=== PATIENT | male | born 1945 | race Caucasian/White ===

== ENCOUNTER 2016-12-17 10:48 | Observation (INO) | payer OTHER ==
[~2016-12-17] VITALS: Ht 175.3 cm; Wt 70.6 kg
[~2016-12-17 10:48] MED LIST: ADVAIR DISKU1 INH; ALBUTEROL2.5 MG/3 M IN; ASPIRIN ADULT L81 MG PO; IPRATROPIUM BROMIDE/ IN; KLOR-CON 1010 MEQ PO; LASIX20 MG PO; LOPRESSOR25 MG PO; NICOTINE T7 MG/24 HR TOP; O2; O2 IN; OXYCONTIN CR10 MG PO; PRINIVIL5 MG PO
--- NOTE | 2016-12-17 12:19 | DIAGNOSTIC IMAGING REPORT ---
PROCEDURE: XR CHEST 1 VIEW INDICATION: SHORTNESS OF BREATH TECHNIQUE: Portable AP view 11:31 a.m. COMPARISON: Chest 07/30/1969 07/02/[address] 07/28/2016 FINDINGS: Allowing for suboptimal inspiration, lungs are clear. Mild cardiomegaly. Mediastinum is normal. Thorax is normal. IMPRESSION: 1. Cardiomegaly. 2. Otherwise negative chest.
--- NOTE | 2016-12-17 15:36 | DIAGNOSTIC IMAGING REPORT ---
PROCEDURE: US VENOUS - LEFT EXT INDICATION: SWELLING TECHNIQUE: Duplex sonography of the deep venous system in the lower extremity was performed. Compression and augmentation techniques were used. COMPARISON: None. FINDINGS: Normal compression of the greater saphenous, common femoral, superficial femoral, popliteal, peroneal, and posterior tibial veins. Occlusive thrombus of the gastrocnemius vein. IMPRESSION: 1. Occlusive thrombus of the left gastrocnemius vein.
--- NOTE | 2016-12-17 16:32 | DIAGNOSTIC IMAGING REPORT ---
PROCEDURE: CTA THORAX WITH CONTRAST INDICATION: SHORTNESS OF BREATH TECHNIQUE: 76 ml of Isovue 370 was injected intravenously and axial images were obtained of the entire thorax with 3D sagittal and coronal MIP reconstructions. COMPARISON: Chest x-ray 12/17/2016 and CTA 07/02/2016. FINDINGS: No evidence of pulmonary emboli. Slight progression of left basilar atelectasis. No adenopathy. Moderate atherosclerosis of the aorta without dissection or aneurysm. Coronary atherosclerosis. Mild cardiomegaly with new small right and tiny left pleural effusions. Pericardial calcification. Moderate degenerative changes of the thoracic and lumbar spine with several stable old compression fractures of the lower thoracic spine and upper lumbar spine. IMPRESSION: 1. No evidence of pulmonary emboli 2. Cardiomegaly with pericardial calcification (suggestive of prior inflammatory process) with new bilateral pleural effusion suggestive of CHF 3. Slight progression of left basilar atelectasis 4. Results discussed with Dr. Moy
--- NOTE | 2016-12-17 20:25 | ED CLINICAL REPORT ---
Clinical Report - Physicians/Mid Levels [facility] [address] [place] [address] 12/17/2016 10:50 Patient: STIVEN JUAN Time Seen: 10:56; initial patient contact. Arrived- By private vehicle. Historian- patient. HISTORY OF PRESENT ILLNESS Chief Complaint: HISTORY OF CHRONIC OBSTRUCTIVE PULMONARY DISEASE and CONGESTIVE HEART FAILURE. This started about 4 days ago and is still present. The dyspnea is described as moderate. The dyspnea is worsened by walking, exertion and cough. No improvement of dyspnea with rest or oxygen. The patient has had sputum production, a cough, wheezing, dyspnea on exertion and orthopnea. No fever, sweating episodes, chills or chest pain or discomfort. No calf pain, anxiety, dizziness or palpitations. The patient has had moderate left foot swelling. Similar symptoms previously: Several times. Recent medical care: Not recently seen/assessed. REVIEW OF SYSTEMS No nausea, vomiting or headache. All systems otherwise negative, except as recorded above. PAST HISTORY Hypoxia. Respiratory Failure. Acidosis. Contusion. Lung Disease. Pneumonia. Congestive Heart Failure. COPD - Chronic Obstructive Pulmonary Disease. Hypertension. Muscle Tear Cellulitis Hematuria Ureterolithiasis ADDITIONAL SURGERIES: Knee Surgery. Neck Surgery. SOCIAL HISTORY Current every day smoker. Occasional alcohol use. No drug use. ADDITIONAL NOTES The nursing notes have been reviewed. PHYSICAL EXAM Vital Signs: 12/17/2016 10:53 BP: 184/106. HR: 117. RR: 26. O2 saturation: 70%. Temp: 98 F. Have been reviewed. Hypertensive. Tachycardic. Tachypneic. Temperature normal. Oxygen saturation low. Appearance: Alert. No acute distress. Eyes: Eyes normal inspection. ENT: Pharynx normal. Neck: Normal inspection. No jugular venous distention. CVS: Tachycardia. Heart sounds normal. Rhythm normal. Respiratory: Mild respiratory distress with accessory muscle use. Mildly prolonged expirations. Mild rales present in the bases bilaterally. Abdomen: Soft and nontender. No organomegaly. Skin: Skin warm and dry. Normal skin color. No rash. Extremities: Moderate pitting edema of the left lower extremity involving the lower leg. No calf tenderness. Neuro: Oriented X 3. No motor deficit. LABS, X-RAYS, AND EKG EKG: EKG time: (1107). Narrow-complex tachycardia (ventricular rate 115). Sinus tachycardia. Normal P waves. Normal LUIS A. Normal QRS complex. Right axis deviation. Normal ST and T waves, QT and QTc. EKG unchanged when compared with prior EKG. The study has been interpreted contemporaneously by me. The study has been independently viewed by me. The EKG appears to be a good tracing. Interpretation time: 1107. Chest X-ray: Mild cardiomegaly. Normal lung markings present. No infiltrate. No vascular congestion, CHF or pulmonary edema. Views: AP. The X-rays were independently viewed by me and interpreted contemporaneously by me. Prior films were not available for comparison. Chest CT: (1. No evidence of pulmonary emboli 2. Cardiomegaly with pericardial calcification (suggestive of prior inflammatory process) with new bilateral pleural effusion suggestive of CHF 3. Slight progression of left basilar atelectasis). Chest CT performed with contrast. A comparison with prior studies reveals that the findings have worsened. The study was interpreted by the radiologist and discussed with the radiologist. Lower Extremity Sonography: Occlusive thrombus of the left gastrocnemius vein. The exam was performed by a public health sanitarian technician. The study was interpreted by the radiologist and discussed with the radiologist. Prior studies were not available for comparison. Laboratory Tests: UA-Culture if indicated: (ANDREIA: 12/17/2016 16:10) ( MsgRcvd 12/17/2016 16:37) Final results Test Result Flag Units (Reference) URINE COLOR BROWN URINE APPEARANCE CLEAR URINE GLUCOSE NEGATIVE (NEGATIVE) URINE BILIRUBIN NEGATIVE (NEGATIVE) URINE KETONE NEGATIVE (NEGATIVE) URINE SPECIFIC GRAVITY >= 1.030 (1.010-1.030) URINE PH 5.5 (5.0-8.0) URINE PROTEIN TRACE (NEGATIVE) URINE UROBILINOGEN 0.2 EU/dL (0.2-1.0) URINE NITRITE NEGATIVE (NEGATIVE) URINE BLOOD NEGATIVE (NEGATIVE) URINE LEUK ESTERASE NEGATIVE (NEGATIVE) URINE RBC NONE SEEN rbc/hpf (0-1) URINE WBC 0-1 wbc/hpf (0-1) URINE EPITHELIAL CELLS 1-3 EPI/hpf (0-5) HYALINE CASTS 3-5/LPF URINE BACTERIA TRACE (<1+) (NONE SEEN) URINE COMMENT CULT NOT INDICATED URINE CULTURES ARE SET-UP BASED ON THE FOLLOWING CRITERIA:POSITIVE NITRITEPOSITIVE LEUKOCYTE ESTERASEGREATER THAN 10 WHITE BLOOD CELLSMODERATE (2+) OR GREATER BACTERIA CBC w Diff: (ANDREIA: 12/17/2016 11:00) ( [facility] 12/17[place] 11:33) Final results Test Result Flag Units (Reference) WHITE BLOOD COUNT 8.9 K/uL (4.5-11.5) RED BLOOD COUNT 4.95 M/uL (4.50-5.90) HEMOGLOBIN 13.3 L gm/dL (13.5-17.5) HEMATOCRIT 42.1 % (41.0-53.0) MEAN CELL VOLUME 85 fL (80-100) MEAN CORPUSCULAR HGB 27 pg (26-34) MEAN CORPUSCULAR HGB CONC 32 g/dL (31-37) RED CELL DISTRIBUTION WIDTH 17.4 H % (11.6-14.8) PLATELET COUNT 220 K/uL (150-400) NEUTROPHIL % 60.0 % (50-75) LYMPH % 28.6 % (25-40) MONO % 8.9 % (3-14) EOSINOPHIL % 2.2 % (0-4) BASOPHIL % 0.3 % (0-2) [id number]: (ANDREIA: 12/17/2016 11:00) ( [facility] 12/17/2016 11:40) Final results Test Result Flag Units (Reference) D-DIMER QUANTITATIVE 0.75 H ug/mLFEU (0.27-0.52) The primary value of this quantitative assay relates toits negative predictive value (i.e. exclusion) of pulmonaryembolism/deep vein thrombosis/DIC.Elevated levels of d-dimer may also occur with:, age, cancer, inflammation, liver disease,post-op, infection, hematoma, coronary disease, peripheralarteriopathy, bleeding disorders and thrombolytic treatment.Results should be correlated with other clinical andradiological data.Testing Methodology: Latex Immunoassay BNP: (ANDREIA: 12/17/2016 11:00) ( [facility] 12/17/2016 11:53) Final results Test Result Flag Units (Reference) B-TYPE NATRIURETIC PEPTIDE 411 H pg/ml (5-100) CHEM 13 PANEL: (ANDREIA: 12/17/2016 11:00) ( [facility] 12/17/2016 12:07) Final results Test Result Flag Units (Reference) GLUCOSE 115 H mg/dL (70-110) BUN 10 mg/dL (7-18) CREATININE 0.7 mg/dL (0.6-1.3) Estimated GFR >60 mL/min Estimated GFR- >60 mL/min Note: Persistent reduction over 3 months in eGFR<60 mL/min/1.73 m2 defines CKD. Patients with eGFR values>=60 mL/min/1.73 m2 may also have CKD if evidence ofpersistent proteinuria. Additional information may be foundat www.kidney.org. SODIUM 145 mmol/L (136-145) POTASSIUM 4.7 mmol/L (3.5-5.1) CHLORIDE 102 mmol/L (98-107) CARBON DIOXIDE 42 *H mmol/L (21-32) CALCIUM 9.4 mg/dL (8.5-10.1) TOTAL PROTEIN 7.3 g/dL (6.4-8.2) ALBUMIN 3.8 g/dL (3.3-5.0) BILIRUBIN, TOTAL 1.8 H mg/dL (0.0-1.0) ALKALINE PHOSPHATASE 80 U/L (46-116) AST (SGOT) 16 U/L (15-37) ALT (SGPT) 25 U/L (12-78) MAGNESIUM 2.1 mg/dL (1.8-2.4) CPK 51 U/L (24-260) TROPONIN I <0.05 ng/mL (0.00-1.5) TROPONIN REFERENCE RANGE:<0.1 NEGATIVE0.1-1.5 INDETERMINANT>1.5 POSITIVE ABG: (ANDREIA: 12/17/2016 16:56) ( [facility] 12/17/2016 17:36) Final results Test Result Flag Units (Reference) FIO2 28 % (20-101) ABG MODE OF DELIVERY NC MODIFIED JIM TEST POSITIVE? YES LITERS PER MIN. 2 L/MIN (0-20) ARTERIAL BLOOD GAS SITE RR ARTERIAL BLOOD GAS pH 7.31 L (7.35-7.45) ABG PCO2 94.7 *H mmHg (35-45) ABG PO2 65.9 mmHg (60.0-80.0) ABG BASE EXCESS 19.0 *H mmol/L (-6.0--6.0) ABG HCO3 47.7 *H mmol/L (20.0-26.0) ABG TCO2 50.6 *H mmol/L (24.0-30.0) ABG TrLmB6m 25.3 H mmHg (7.0-14.0) *NOTE: Normal rangeis based on aFIO2 of 21% ABG SAT O2 93.2 L % (95.1-100.0) ABG TOTAL HEMOGLOBIN 12.1 L g/dL (14.0-18.0) ABG O2 HEMOGLOBIN 90.0 L % (95.0-100.0) ABG CARBOXYHEMOGLOBIN 3.3 H % (0.5-1.5) ABG METHEMOGLOBIN 0.1 L % (0.4-1.5) ABG RHEMOGLOBIN 6.6 % . PROGRESS AND PROCEDURES Discussed case with hospitalist, (call returned 20:24 Dr. Sims. Will admit pt.). CLINICAL IMPRESSION Acute mild congestive heart failure. Deep venous thrombosis of the left lower extremity (Gastrocnemius V.). (Electronically signed by Marco Antonio Moy Dr. 12/17/2016 21:39)
--- NOTE | 2016-12-17 20:25 | ED ORDER SUMMARY ---
..... Patient: STIVEN JUAN OrderSheet [facility] VisitID: [id number] [place] [address] 71y, M Registration Date/Time: 12/17/2016 ORDER SHEET Weight: 68.0 kg (estimated) Allergies: No Known Drug Allergy GENERAL ORDERS: EKG - ER Stat (11:11 12/17/2016 LNations ER Tech1 per protocol) (11:12 LNations ER Tech1) Chest 1V Urgent (11:12/17/2016 Jose L Jefferson) (Ack 11:23 Kaleb) (11:40 ROBBINayne R.N.) UA-Culture if indicated Urgent (11:12/17/2016 Jose L Jefferson) (Ack 11:23 Kaleb) (16:17 SRoberts R.N.) Cardiac Panel Stat (11:12/17/2016 Jose L Jefferson) (Ack 11:23 Kaleb) (11:50 SRoberts R.N.) BNP Urgent (11:12/17/2016 Jose L Jefferson) (Ack 11:23 Shannonner) (11:50 oberts R.N.) D-Dimer Urgent (11:12/17/2016 Jose L Jefferson) (Ack 11:23 Shannonner) (11:50 SRoberts R.N.) CTA Thorax w Cont (No) (10/0.7) (Pos D dimer) Urgent (14:38 12/17/2016 Jose L Jefferson) (Ack 14:46 Kaleb) (16:37 MCampbell) US Venous Left (Pos D dimer) Urgent (14:42 12/17/2016 Jose L Jefferson) (Ack 14:46 Kaleb) (14:52 YUSEFoejoseph) ABG (G) Urgent (16:56 12/17/2016 Jose L Jefferson) (Ack 17:00 YUSEFoejoseph) (18:51 YUSEFoerner) MEDICATION ORDERS: IV FLUIDS: IV Saline Lock (11:04 12/17/2016 oberts R.N. per protocol) (11:05 SRoberts R.N.) Lasix IV 40 mg (NOW) (19:28 12/17/2016 Jose L Jefferson) ([facility] 19:31 Bonnie Geronimo) (19:40 Bonnie Geronimo) ORDER SHEET NOTES: [Electronically signed by Marco Antonio Moy Dr. (21:39 12/17/2016)] [Electronically signed by Melly Townsend R.N. (:28 12/17/2016)] [Electronically locked/signed by Melly Townsend R.N. (22:28 12/17/2016)]
--- NOTE | 2016-12-17 20:25 | ED ORDER SUMMARY ---
..... Patient: STIVEN JUAN OrderSheet [facility] VisitID: [id number] [place] [address] 71y, M Registration Date/Time: 12/17/2016 ORDER SHEET Weight: 68.0 kg (estimated) Allergies: No Known Drug Allergy GENERAL ORDERS: EKG - ER Stat (11:11 12/17/2016 LNations ER Tech1 per protocol) (11:12 LNations ER Tech1) Chest 1V Urgent (11:12/17/2016 Jose L Jefferson) (Ack 11:23 Kaleb) (11:40 ROBBINayne R.N.) UA-Culture if indicated Urgent (11:12/17/2016 Jose L Jefferson) (Ack 11:23 Kaleb) (16:17 SRoberts R.N.) Cardiac Panel Stat (11:12/17/2016 Jose L Jefferson) (Ack 11:23 Kaleb) (11:50 SRoberts R.N.) BNP Urgent (11:12/17/2016 Jose L Jefferson) (Ack 11:23 Shannonner) (11:50 oberts R.N.) D-Dimer Urgent (11:12/17/2016 Jose L Jefferson) (Ack 11:23 Shannonner) (11:50 SRoberts R.N.) CTA Thorax w Cont (No) (10/0.7) (Pos D dimer) Urgent (14:38 12/17/2016 Jose L Jefferson) (Ack 14:46 Kaleb) (16:37 MCampbell) US Venous Left (Pos D dimer) Urgent (14:42 12/17/2016 Jose L Jefferson) (Ack 14:46 Kaleb) (14:52 YUSEFoejoseph) ABG (G) Urgent (16:56 12/17/2016 Jose L Jefferson) (Ack 17:00 YUSEFoejoseph) (18:51 YUSEFoerner) MEDICATION ORDERS: IV FLUIDS: IV Saline Lock (11:04 12/17/2016 oberts R.N. per protocol) (11:05 SRoberts R.N.) Lasix IV 40 mg (NOW) (19:28 12/17/2016 Jose L Jefferson) ([facility] 19:31 Bonnie Geronimo) (19:40 Bonnie Geronimo) ORDER SHEET NOTES: [Electronically signed by Marco Antonio Moy Dr. (21:39 12/17/2016)] [Electronically signed by Melly Townsend R.N. (:28 12/17/2016)] [Electronically locked/signed by Melly Townsend R.N. (22:28 12/17/2016)]
--- NOTE | 2016-12-17 20:25 | ED CLINICAL REPORT ---
Clinical Report - Physicians/Mid Levels [facility] [address] [place] [address] 12/17/2016 10:50 Patient: STIVEN JUAN Time Seen: 10:56; initial patient contact. Arrived- By private vehicle. Historian- patient. HISTORY OF PRESENT ILLNESS Chief Complaint: HISTORY OF CHRONIC OBSTRUCTIVE PULMONARY DISEASE and CONGESTIVE HEART FAILURE. This started about 4 days ago and is still present. The dyspnea is described as moderate. The dyspnea is worsened by walking, exertion and cough. No improvement of dyspnea with rest or oxygen. The patient has had sputum production, a cough, wheezing, dyspnea on exertion and orthopnea. No fever, sweating episodes, chills or chest pain or discomfort. No calf pain, anxiety, dizziness or palpitations. The patient has had moderate left foot swelling. Similar symptoms previously: Several times. Recent medical care: Not recently seen/assessed. REVIEW OF SYSTEMS No nausea, vomiting or headache. All systems otherwise negative, except as recorded above. PAST HISTORY Hypoxia. Respiratory Failure. Acidosis. Contusion. Lung Disease. Pneumonia. Congestive Heart Failure. COPD - Chronic Obstructive Pulmonary Disease. Hypertension. Muscle Tear Cellulitis Hematuria Ureterolithiasis ADDITIONAL SURGERIES: Knee Surgery. Neck Surgery. SOCIAL HISTORY Current every day smoker. Occasional alcohol use. No drug use. ADDITIONAL NOTES The nursing notes have been reviewed. PHYSICAL EXAM Vital Signs: 12/17/2016 10:53 BP: 184/106. HR: 117. RR: 26. O2 saturation: 70%. Temp: 98 F. Have been reviewed. Hypertensive. Tachycardic. Tachypneic. Temperature normal. Oxygen saturation low. Appearance: Alert. No acute distress. Eyes: Eyes normal inspection. ENT: Pharynx normal. Neck: Normal inspection. No jugular venous distention. CVS: Tachycardia. Heart sounds normal. Rhythm normal. Respiratory: Mild respiratory distress with accessory muscle use. Mildly prolonged expirations. Mild rales present in the bases bilaterally. Abdomen: Soft and nontender. No organomegaly. Skin: Skin warm and dry. Normal skin color. No rash. Extremities: Moderate pitting edema of the left lower extremity involving the lower leg. No calf tenderness. Neuro: Oriented X 3. No motor deficit. LABS, X-RAYS, AND EKG EKG: EKG time: (1107). Narrow-complex tachycardia (ventricular rate 115). Sinus tachycardia. Normal P waves. Normal LUIS A. Normal QRS complex. Right axis deviation. Normal ST and T waves, QT and QTc. EKG unchanged when compared with prior EKG. The study has been interpreted contemporaneously by me. The study has been independently viewed by me. The EKG appears to be a good tracing. Interpretation time: 1107. Chest X-ray: Mild cardiomegaly. Normal lung markings present. No infiltrate. No vascular congestion, CHF or pulmonary edema. Views: AP. The X-rays were independently viewed by me and interpreted contemporaneously by me. Prior films were not available for comparison. Chest CT: (1. No evidence of pulmonary emboli 2. Cardiomegaly with pericardial calcification (suggestive of prior inflammatory process) with new bilateral pleural effusion suggestive of CHF 3. Slight progression of left basilar atelectasis). Chest CT performed with contrast. A comparison with prior studies reveals that the findings have worsened. The study was interpreted by the radiologist and discussed with the radiologist. Lower Extremity Sonography: Occlusive thrombus of the left gastrocnemius vein. The exam was performed by a racking technician. The study was interpreted by the radiologist and discussed with the radiologist. Prior studies were not available for comparison. Laboratory Tests: UA-Culture if indicated: (ANDREIA: 12/17/2016 16:10) ( MsgRcvd 12/17/2016 16:37) Final results Test Result Flag Units (Reference) URINE COLOR BROWN URINE APPEARANCE CLEAR URINE GLUCOSE NEGATIVE (NEGATIVE) URINE BILIRUBIN NEGATIVE (NEGATIVE) URINE KETONE NEGATIVE (NEGATIVE) URINE SPECIFIC GRAVITY >= 1.030 (1.010-1.030) URINE PH 5.5 (5.0-8.0) URINE PROTEIN TRACE (NEGATIVE) URINE UROBILINOGEN 0.2 EU/dL (0.2-1.0) URINE NITRITE NEGATIVE (NEGATIVE) URINE BLOOD NEGATIVE (NEGATIVE) URINE LEUK ESTERASE NEGATIVE (NEGATIVE) URINE RBC NONE SEEN rbc/hpf (0-1) URINE WBC 0-1 wbc/hpf (0-1) URINE EPITHELIAL CELLS 1-3 EPI/hpf (0-5) HYALINE CASTS 3-5/LPF URINE BACTERIA TRACE (<1+) (NONE SEEN) URINE COMMENT CULT NOT INDICATED URINE CULTURES ARE SET-UP BASED ON THE FOLLOWING CRITERIA:POSITIVE NITRITEPOSITIVE LEUKOCYTE ESTERASEGREATER THAN 10 WHITE BLOOD CELLSMODERATE (2+) OR GREATER BACTERIA CBC w Diff: (ANDREIA: 12/17/2016 11:00) ( [facility] 12/17/2016 11:33) Final results Test Result Flag Units (Reference) WHITE BLOOD COUNT 8.9 K/uL (4.5-11.5) RED BLOOD COUNT 4.95 M/uL (4.50-5.90) HEMOGLOBIN 13.3 L gm/dL (13.5-17.5) HEMATOCRIT 42.1 % (41.0-53.0) MEAN CELL VOLUME 85 fL (80-100) MEAN CORPUSCULAR HGB 27 pg (26-34) MEAN CORPUSCULAR HGB CONC 32 g/dL (31-37) RED CELL DISTRIBUTION WIDTH 17.4 H % (11.6-14.8) PLATELET COUNT 220 K/uL (150-400) NEUTROPHIL % 60.0 % (50-75) LYMPH % 28.6 % (25-40) MONO % 8.9 % (3-14) EOSINOPHIL % 2.2 % (0-4) BASOPHIL % 0.3 % (0-2) [id number]: (ANDREIA: 12/17/2016 11:00) ( [facility] [place] 12/17/2016 11:40) Final results Test Result Flag Units (Reference) D-DIMER QUANTITATIVE 0.75 H ug/mLFEU (0.27-0.52) The primary value of this quantitative assay relates toits negative predictive value (i.e. exclusion) of pulmonaryembolism/deep vein thrombosis/DIC.Elevated levels of d-dimer may also occur with:, age, cancer, inflammation, liver disease,post-op, infection, hematoma, coronary disease, peripheralarteriopathy, bleeding disorders and thrombolytic treatment.Results should be correlated with other clinical andradiological data.Testing Methodology: Latex Immunoassay BNP: (ANDREIA: 12/17/2016 11:00) ( [facility] 12/17/2016 11:53) Final results Test Result Flag Units (Reference) B-TYPE NATRIURETIC PEPTIDE 411 H pg/ml (5-100) CHEM 13 PANEL: (ANDREIA: 12/17/2016 11:00) ( [facility] 12/17/2016 12:07) Final results Test Result Flag Units (Reference) GLUCOSE 115 H mg/dL (70-110) BUN 10 mg/dL (7-18) CREATININE 0.7 mg/dL (0.6-1.3) Estimated GFR >60 mL/min Estimated GFR- >60 mL/min Note: Persistent reduction over 3 months in eGFR<60 mL/min/1.73 m2 defines CKD. Patients with eGFR values>=60 mL/min/1.73 m2 may also have CKD if evidence ofpersistent proteinuria. Additional information may be foundat [email or web address].org. SODIUM 145 mmol/L (136-145) POTASSIUM 4.7 mmol/L (3.5-5.1) CHLORIDE 102 mmol/L (98-107) CARBON DIOXIDE 42 *H mmol/L (21-32) CALCIUM 9.4 mg/dL (8.5-10.1) TOTAL PROTEIN 7.3 g/dL (6.4-8.2) ALBUMIN 3.8 g/dL (3.3-5.0) BILIRUBIN, TOTAL 1.8 H mg/dL (0.0-1.0) ALKALINE PHOSPHATASE 80 U/L (46-116) AST (SGOT) 16 U/L (15-37) ALT (SGPT) 25 U/L (12-78) MAGNESIUM 2.1 mg/dL (1.8-2.4) CPK 51 U/L (24-260) TROPONIN I <0.05 ng/mL (0.00-1.5) TROPONIN REFERENCE RANGE:<0.1 NEGATIVE0.1-1.5 INDETERMINANT>1.5 POSITIVE ABG: (ANDREIA: 12/17/2016 16:56) ( [facility] 12/17/2016 17:36) Final results Test Result Flag Units (Reference) FIO2 28 % (20-101) ABG MODE OF DELIVERY NC MODIFIED JIM TEST POSITIVE? YES LITERS PER MIN. 2 L/MIN (0-20) ARTERIAL BLOOD GAS SITE RR ARTERIAL BLOOD GAS pH 7.31 L (7.35-7.45) ABG PCO2 94.7 *H mmHg (35-45) ABG PO2 65.9 mmHg (60.0-80.0) ABG BASE EXCESS 19.0 *H mmol/L (-6.0--6.0) ABG HCO3 47.7 *H mmol/L (20.0-26.0) ABG TCO2 50.6 *H mmol/L (24.0-30.0) ABG WpFqI3t 25.3 H mmHg (7.0-14.0) *NOTE: Normal rangeis based on aFIO2 of 21% ABG SAT O2 93.2 L % (95.1-100.0) ABG TOTAL HEMOGLOBIN 12.1 L g/dL (14.0-18.0) ABG O2 HEMOGLOBIN 90.0 L % (95.0-100.0) ABG CARBOXYHEMOGLOBIN 3.3 H % (0.5-1.5) ABG METHEMOGLOBIN 0.1 L % (0.4-1.5) ABG RHEMOGLOBIN 6.6 % . PROGRESS AND PROCEDURES Discussed case with hospitalist, (call returned 20:24 Dr. Sims. Will admit pt.). CLINICAL IMPRESSION Acute mild congestive heart failure. Deep venous thrombosis of the left lower extremity (Gastrocnemius V.). (Electronically signed by Marco Antonio Moy Dr. 12/17/2016 21:39)
--- NOTE | 2016-12-17 20:25 | ED NURSING NOTES ---
Clinical Report - Nurses [facility] [address] [place] [address] 12/17/2016 10:50 Patient: STIVEN JUAN TRIAGE Triage time 10:54. Acuity: LEVEL 3. Chief Complaint: SHORTNESS OF BREATH and DIFFICULTY BREATHING. Alert. No acute distress. SEPSIS SCREEN: Sepsis Screen: negative. Negative (no infection suspected/documented). JOVANNI COMA SCORE: Bradford Coma Scale: 15- eyes open spontaneously (4); best verbal response- oriented x 4 (5); best motor response- obeys commands (6). --11:02 Veronica Hayden R.N. 10:53 12/17/16. BP: 184/106 taken on the left arm, while sitting. HR: 117. RR: 26. O2 saturation: 70% on room air. O2 started via nasal cannula at 3 liters/minute. Temp: 98 F. --11:02 Veronica Hayden R.N. 10:53 12/17/16. BP: 184/106 taken on the left arm, while sitting. HR: 117. RR: 26. O2 saturation: 70% on room air. O2 started via nasal cannula at 3 liters/minute. Temp: 98 F. --11:02 Veronica Hayden R.N. Weight: 68 kg estimated. Height/Length: 64 inches Estimated. BMI: 25.8. --10:59 Veronica Hayden R.N. Medications Lasix Oral. --10:55 Veronica Hayden R.N. Calcium. --10:55 Veronica Hayden R.N. Medication/allergy information source: the patient. --11:02 Veronica Hayden R.N. Allergies No Known Drug Allergy. --10:54 Veronica Hayden R.N. History Arrived by private vehicle. Historian: patient and family. Primary physician (shane). Onset. (4 days ago). No fever, chest pain or back pain. Treatment RESIDENTIAL CARE OFFICER: (home 02). PAST MEDICAL HX: Immunizations: status is unknown. SURGERY HX: Neck surgery. (hardware in place). SOCIAL HX: Light tobacco smoker (cigarette)- less than 1/2 a pack per day. Alcohol use; consumes beer occasionally. No drug use. NUTRITIONAL RISK ASSESSMENT: The nutritional risk assessment revealed no deficiencies. LEARNING NEEDS ASSESSMENT: The learning needs assessment revealed no barriers. FALL RISK ASSESSMENT: Fall risk assessment completed. Risk factors identified include dizziness and patient age greater than 65 years and impairment of mobility. Fall interventions initiated. Patient placed on stretcher. Side rails up x2. Brakes on Bed in low position. Patient visible from nurses' station. Call light in reach. Instructed not to get up without assistance. FUNCTIONAL ASSESSMENT: Functional assessment performed: requires assistance with the activities of daily living; uses walker. The patient is under physician care for his functional impairment. SKIN INTEGRITY ASSESSMENT: Skin integrity risk assessment completed. No skin integrity risk identified. --11:02 Veronica Hayden R.N. PROBLEMS: Hypoxia. Respiratory Failure. Acidosis. Contusion. Lung Disease. Pneumonia. Congestive Heart Failure. COPD - Chronic Obstructive Pulmonary Disease. Hypertension. --10:56 Veronica Hayden R.N. Muscle Tear [RuleOut]. Cellulitis [RuleOut]. Hematuria [RuleOut]. Ureterolithiasis [RuleOut]. --10:56 Veronica Hayden R.N. ADDITIONAL SURGERIES: Knee Surgery. Neck Surgery. --10:56 Veronica Hayden R.N. Interventions ID band on patient. To room. --11:02 Veronica Hayden R.N. PHYSICAL ASSESSMENT To room via wheelchair. Patient gowned. GENERAL / NEURO / PSYCH: Alert. Oriented X 4. Appears anxious. HEENT: Mucous membranes are pink. RESPIRATORY: The patient can speak a few words at a time. CVS: Capillary refill less than 2 seconds. GI / : Abdomen nontender. SKIN: Skin is warm and dry. Normal skin turgor. --11:03 Veronica Hayden R.N. EXTREMITIES: 3+ pitting edema of the left lower extremity involving the lower leg. also in the lt hand. --11:04 Veronica Hayden R.N. NURSING PROGRESS NOTES Oxygen administered by nasal cannula at 3 liters. Monitoring of patient in place. Reassurance given. Two patient identifiers checked. Call light placed in reach. Side rails up x 2. Bed placed in lowest position. Brakes of bed on. Patient ready for evaluation. --11:03 Veronica Hayden R.N. 11:05 12/17/2016 Site #1 started via IV in the right antecubital space with an 20g angiocath, with aseptic technique and good blood return; one attempt. Blood drawn: rainbow set. Labeled in the presence of the patient and sent to the lab. Saline lock flushed with 10 mL saline (1st set of blood cultures done and lactate.). --11:05 Veronica Hayden R.N. Oxygen administered by nasal cannula at 2 liters. --11:06 Veronica Hayden R.N. EKG time: (1107). EKG was ordered, performed by a tech and shown to the ED physician. --11:12 Kayla Epstein ER Tech1 14:43 12/17/16. BP: 145/79. HR: 108. RR: 18. O2 saturation: 94% on nasal cannula at 3 liters/minute. 13:31 12/17/16. BP: 151/85. HR: 109. RR: 18. O2 saturation: 90% on nasal cannula at 3 liters/minute. 12:10 12/17/16. BP: 152/78. HR: 112. RR: 20. O2 saturation: 90% on nasal cannula at 3 liters/minute. --14:44 Veronica Hayden R.N. 16:17 12/17/16. Patient ID band checked for patient name: patient confirmed. Instructions provided to collect clean catch urine and patient verbalized understanding. Clean catch urine collected with return of thomas-colored clear urine; sample sent to lab for urinalysis and culture. Specimen labeled in the presence of the patient. --16:17 Veronica Hayden R.N. 18:26 12/17/16. ( Patient given urinal for restroom). --18:26 Jordana Schroeder R.N. 19:40 12/17/2016 Lasix IVP 40 mg given over 5 minute(s) via site #1. Allergies verified and confirmed 5 rights. IV patency established. IV site checked: no pain, redness, or swelling. IV flushed thoroughly pre- and post-medication administration. IVP given by RN. --19:40 Veronica Hayden R.N. 20:29 Patient voided 560 mL per urinal. --20:29 McQuoid, Thomas, ER Tech1 21:09 12/17/16. BP: 145/89. HR: 99. RR: 18. O2 saturation: 97% on nasal cannula at 3 liters/minute. 20:18 12/17/16. BP: 153/84. HR: 102. RR: 18. O2 saturation: 99% on nasal cannula at 3 liters/minute. 19:01 12/17/16. BP: 165/79. HR: 78. RR: 18. O2 saturation: 98% on nasal cannula at 3 liters/minute. 16:37 12/17/16. BP: 163/79. HR: 104. RR: 20. O2 saturation: 97% on nasal cannula at 3 liters/minute. 14:43 12/17/16. BP: 145/79. HR: 108. RR: 18. O2 saturation: 94% on nasal cannula at 3 liters/minute. 13:31 12/17/16. BP: 151/85. HR: 109. RR: 18. O2 saturation: 90% on nasal cannula at 3 liters/minute. --21:10 Veronica Hayden R.N. ( Voided in the urinal x 2 since the lasix, voided [id number].). --21:10 Veronica Hayden R.N. ( Resting well. no c/o pain at this time.). --21:11 Veronica Hayden R.N. DISPOSITION / DISCHARGE <<STRICKEN ENTRY-- 17:00 12/17/2016 Site #1 removed upon discharge. Bandaid applied. --17:00 Jordana Schroeder R.N. --END STRIKE>> Charted on wrong patient. --17:03 Jordana Schroeder R.N. <<STRICKEN ENTRY-- 16:52 12/17/16. BP: 170/74 (regular adult cuff) taken on the right arm, while sitting. HR: 78. RR: 18. O2 saturation: 97% on nasal cannula at 2 liters/minute. Temp: 97.6 F (oral). Pain level now: 11/01. --17:00 Jordana Schroeder R.N. --END STRIKE>> Charted on wrong patient. --17:02 Jordana Schroeder R.N. <<STRICKEN ENTRY-- 17:00 12/17/16. Condition at departure: improved. No learning barriers present. Discharge instructions provided and reviewed with the patient. Reviewed warnings (Follow up with Dr for INR check). Patient verbalized understanding. Written instructions provided in Bangladeshi. The patient was discharged by the physician. He was discharged to the half-way and accompanied by family. He left the Emergency Department via ambulance and on a stretcher. Driving (EMS). --17:00 Jordana Schroeder R.N. --END STRIKE>> Charted On Wrong Patient --17:01 Jordana Schroeder R.N. <<STRICKEN ENTRY-- 17:00 12/17/16. ( Patient will wait for ride back to [address] [facility] in room). --17:00 Jordana Schroeder R.N. --END STRIKE>> Charted On Wrong Patient --17:01 Jordana Schroeder R.N. Transported via stretcher by [facility] with O2. Report was given to a nurse via a phone call. Report included patient's care, treatment, medications, reviewed medication reconcilliation, and condition (including any recent changes or anticipated changes). All questions were answered. Report was acknowledged and care was transferred. (KAILASH Dave). Patient's personal items include: shirt, pants, undergarments, coat, socks, shoes and cell phone; items were placed in belongings bag and transported with the patient. Collection of belongings was witnessed by 1 nurse. --22:08 Veronica Hayden R.N. 22:12/17/16. BP: 144/76. HR: 95. RR: 18. O2 saturation: 95% on nasal cannula at 3 liters/minute. Temp: deferred. Pain level now: 0/10. 21:09 12/17/16. BP: 145/89. HR: 99. RR: 18. O2 saturation: 97% on nasal cannula at 3 liters/minute. 20:18 12/17/16. BP: 153/84. HR: 102. RR: 18. O2 saturation: 99% on nasal cannula at 3 liters/minute. 19:01 12/17/16. BP: 165/79. HR: 78. RR: 18. O2 saturation: 98% on nasal cannula at 3 liters/minute. 16:37 12/17/16. BP: 163/79. HR: 104. RR: 20. O2 saturation: 97% on nasal cannula at 3 liters/minute. 14:43 12/17/16. BP: 145/79. HR: 108. RR: 18. O2 saturation: 94% on nasal cannula at 3 liters/minute. 13:31 12/17/16. BP: 151/85. HR: 109. RR: 18. O2 saturation: 90% on nasal cannula at 3 liters/minute. 12:10 12/17/16. BP: 152/78. HR: 112. RR: 20. O2 saturation: 90% on nasal cannula at 3 liters/minute. 10:53 12/17/16. BP: 184/106 taken on the left arm, while sitting. HR: 117. RR: 26. O2 saturation: 70% on room air. O2 started via nasal cannula at 3 liters/minute. Temp: 98 F. --22:13 Veronica Hayden R.N. Patient's personal items include, Small 02 tank. --22:13 Veronica Hayden R.N. Transported via stretcher by [facility]. --22:28 Melly Townsend R.N. 22:28 12/17/2016 Site #[address] upon admission. --22:28 Melly Townsend R.N. Locked/Released at 12/17/2016 22:28 by Melly Townsend R.N.
--- NOTE | 2016-12-17 20:41 | History & Physical Report ---
Information Source Information Source: Self Reliability: Fair History Chief Complaint shortness of breath History of Present Illness Patient is a 71 year old male with a pmh of copd, hypertension, and spinal surgery that is presenting with a 5 day history of shortness of breath. Patient claims that approximately one month ago he had an upper respiratory infection, that did not resolve quickly. Patient claims that towards the end of the infection his breathing never really normalized and that his medications did not provide him with the same relief that he had before. Patient was becoming increasingly breathless when doing activities that would not leave him breathless like before. Patient additionally due to his decreased exercise tolerance has not been moving as actively as before. Patient noticed that he was having pain in his left calf that was irritating while walking for the past few days. Patient is otherwise doing well without any other complaints. Patient is currently stable and will be admitted for obervation. Patient History 1. COPD exacerbation 2. Hypertension 3. Nicotine dependence Social History Patient latrice lives alone in a hotel. Patient manages all his ADLs indepentely. Patient is a lifetime smoker with a 60 pack year history. Patient continues to smoke around 3 cigarettes a day. Patient does not drink and does not use any illicit substances. Family History Family history was reviewed; no changes noted. Medications and Allergies Medications Home Medications Aspirin 81 mg lisinopril 5 mg advair 250/50 mg Lasix 20 mg Ipratropium .5/2.5 metoprolol 25 mg Current Medications Sig/Monroe Start time Last Medication Dose Route Stop Time Status Admin Aspirin 81 MG DAILY 12/18 899 AC PO Furosemide 20 MG DAILY 12/18 899 AC PO Lisinopril 5 MG DAILY 12/18 899 AC PO Nicotine 14 MG DAILY 12/18 899 AC TOP Pantoprazole Sodium 40 MG DAILY@0600 12/18 599 AC Sesquihydrate PO Methylprednisolone 60 MG Q8HR 12/17 2199 AC Sodium Succinate IV Metoprolol Tartrate 25 MG BID 12/17 2100 AC PO Acetaminophen 650 MG Q6H PRN 12/17 2044 AC PO Albuterol/Ipratropium 3 ML RTQ6H PRN 12/17 2044 AC IN Enoxaparin Sodium 40 MG QAM 12/18 2039 AC SC Allergies Coded Allergies: NKA (12/17/16) Review of Systems Constitutional Weakness. Denies: Fever, Chills, Sweats, Malaise, Other. Eyes Denies: Pain, Vision Change, Conjunctival Inflammation, Eyelid Inflammation, Redness, Other. ENT Denies: Ear Pain, Ear Discharge, Nose Pain, Nasal Discharge, Nasal Congestion, Mouth Pain, Mouth Swelling, Throat Pain, Throat Swelling, Other. Respiratory Cough, Dry, SOB w/exertion. Denies: Wheezing, Hemoptysis, Pleuritic Pain, Sputum, Other. Cardiovascular Denies: Chest Pain, Palpitations, Orthopnea, PND, Edema, Light-headedness, Other. Gastrointestinal Denies: Nausea, Vomiting, Abdominal Pain, Diarrhea, Constipation, Melena, Hematochezia, Other. Genitourinary Denies: Dysuria, Frequency, Incontinence, Hematuria, Retention, Other. Musculoskeletal Leg Pain. Denies: Neck Pain, Shoulder Pain, Arm Pain, Back Pain, Hand Pain, Foot Pain, Other. Skin Denies: Rash, Lesions, Jaundice, Bruising, Other. Neurological Denies: Weakness, Numbness, Incoordination, Change in speech, Confusion, Seizures, Other. Physical Exam Vital Signs / I&Os Vital Signs Date Time Temp Pulse Resp B/P Pulse O2 O2 Flow FiO2 Ox Delivery Rate 12/17 1730 2.0 12/17 1306 2.0 General Appearance Alert, Oriented X3, No acute distress HEENT Atraumatic, PERRLA, Moist mucous membranes Lungs - poor air exchange - bilateral basilar ronchi - no wheezes Neck No JVD, No masses, No lymphadenopathy Cardiovascular Normal S1 and S2, No murmurs, gallops, rubs, - irregularly irrgular rhythm Abdomen Soft, No tenderness Extremities No clubbing, No edema, Normal pulses Skin No Breakdown, No Significant Lesions Neurological Normal gait, Normal speech, Sensation intact, Cranial nerves intact Psych/Mental Status Mood normal LAB Results Laboratory Tests 12/17 12/17 12/17 1100 1100 1610 Chemistry Plasma Sodium (136 - 145 mmol/L) 145 Plasma Potassium (3.5 - 5.1 mmol/L) 4.7 Plasma Chloride (98 - 107 mmol/L) 102 CO2 (Enzymatic) (21 - 32 mmol/L) 42 BUN (7 - 18 mg/dL) 10 Creatinine (0.6 - 1.3 mg/dL) 0.7 Est GFR ( Amer) (mL/min) >60 Est GFR (Non-Af Amer) (mL/min) >60 Glucose (70 - 110 mg/dL) 115 Plasma Calcium (8.5 - 10.1 mg/dL) 9.4 Plasma Magnesium (1.8 - 2.4 mg/dL) 2.1 Total Bilirubin (0.0 - 1.0 mg/dL) 1.8 AST (15 - 37 U/L) 16 ALT (12 - 78 U/L) 25 Alkaline Phosphatase (46 - 116 U/L) 80 Creatine Kinase (24 - 260 U/L) 51 Troponin (0.00 - 1.5 ng/mL) <0.05 B-Natriuretic Peptide (5 - 100 pg/ml) 411 Total Protein (6.4 - 8.2 g/dL) 7.3 Albumin (3.3 - 5.0 g/dL) 3.8 Coagulation D-Dimer, Quantitative (0.27 - 0.52 ug/mLFEU) 0.75 Hematology WBC (4.5 - 11.5 K/uL) 8.9 RBC (4.50 - 5.90 M/uL) 4.95 Hgb (13.5 - 17.5 gm/dL) 13.3 Hct (41.0 - 53.0 %) 42.1 MCV (80 - 100 fL) 85 MCH (26 - 34 pg) 27 RDW (11.6 - 14.8 %) 17.4 Neut % (Auto) (50 - 75 %) 60.0 Lymph % (Auto) (25 - 40 %) 28.6 [place] % (Auto) (3 - 14 %) 8.9 Eos % (Auto) (0 - 4 %) 2.2 Baso % (Auto) (0 - 2 %) 0.3 Plt Count, EDTA (150 - 400 K/uL) 220 PUBS MCHC (31 - 37 g/dL) 32 Urines Urine Color BROWN Urine Appearance CLEAR Urine pH (5.0 - 8.0) 5.5 Ur Specific [place] (1.010 - 1.030) >= 1.030 Urine Protein (NEGATIVE) TRACE Urine Ketones (NEGATIVE) NEGATIVE Urine Blood (NEGATIVE) NEGATIVE Urine Nitrite (NEGATIVE) NEGATIVE Urine Bilirubin (NEGATIVE) NEGATIVE Urine Urobilinogen (0.2 - 1.0 EU/dL) 0.2 Ur Leukocyte Esterase (NEGATIVE) NEGATIVE Urine RBC (0 - 1 rbc/hpf) NONE SEEN Urine WBC (0 - 1 wbc/hpf) 0-1 Ur Epithelial Cells (0 - 5 EPI/hpf) 1-3 Urine Bacteria (NONE SEEN) TRACE (<1+) Urine Glucose (NEGATIVE) NEGATIVE Urine Comment CULT NOT INDICATED 12/17 1656 Blood Gas Sample Site RR Total CO2 (24.0 - 30.0 mmol/L) 50.6 ABG pH (7.35 - 7.45) 7.31 ABG pCO2 at Pt Temp (35 - 45 mmHg) 94.7 ABG pO2 at Pt Temp (60.0 - 80.0 mmHg) 65.9 ABG HCO3 (20.0 - 26.0 mmol/L) 47.7 ABG O2 Sat Calc/Sabrina (95.1 - 100.0 %) 93.2 ABG Base Excess (-6.0 - -6.0 mmol/L) 19.0 ABG Reduced Hgb (%) 6.6 ABG Carboxyhemoglobin (0.5 - 1.5 %) 3.3 ABG Methemoglobin (0.4 - 1.5 %) 0.1 Richard Test YES Other Total Hgb (14.0 - 18.0 g/dL) 12.1 A-a O2 Gradient (7.0 - 14.0 mmHg) 25.3 Hgb O2 Saturation (95.0 - 100.0 %) 90.0 O2 Liters/Min (0 - 20 L/MIN) 2 Vent Mode NC FiO2 (20 - 101 %) 28 Assessment and Plan Problem List 1. COPD exacerbation Plan - pt has poor respiratory function at baseline - currently wearing oxygen, needs to keep saturation at 88-92% - currently pco2 is in the 90s with appropriate mentation and no somnolence - will repeat abg after a few doses of steroids - unlikely to change drastically given patients respiratory function - will provide methylprednisone 60 mg q8 - duonebs q6 prn - 3 l NC to keep saturation 88-92 2. Hypertension Status Chronic Onset Date Unknown Plan -established diagnosis - will keep on home meds 3. CHF (congestive heart failure) Status Chronic Onset Date Unknown Plan - no exacerbation noted - will keep on home medications - bnp is appropriate for current status 4. Nicotine dependence
--- NOTE | 2016-12-17 22:28 | ED DISCHARGE INSTRUCTIONS ---
Patient: STIVEN JUAN General Instructions [facility] VisitID: [id number] [address] [place] [address] 71y, M Registration Date/Time: 12/17/2016 Acute mild congestive heart failure. Deep venous thrombosis of the left lower extremity (Gastrocnemius V.). (Electronically signed by Marco Antonio Moy Dr. 12/17/2016 21:39)
--- NOTE | 2016-12-17 22:28 | ED DISCHARGE INSTRUCTIONS ---
Patient: STIVEN JUAN General Instructions [facility] VisitID: [id number] [address] [place] [address] 71y, M Registration Date/Time: 12/17/2016 Acute mild congestive heart failure. Deep venous thrombosis of the left lower extremity (Gastrocnemius V.). (Electronically signed by Marco Antonio Moy Dr. 12/17/2016 21:39)
--- NOTE | 2016-12-17 22:28 | ED MAR SUMMARY ---
..... Medication Administration Record [facility] [address] [place] [address] Patient: STIVEN JUAN Visit ID: [id number] 71y, M Weight: 68.0 kg Height/Length: 64 in BMI: 25.8 ALLERGIES: No Known Drug Allergy Given 19:40 12/17/2016 Veronica Hayden R.N. Medication Administered: LASIX [IVP], Dose: 40 mg IVP over 5 minute(s), Site: #1 right AC. Medication Ordered: Lasix IV 40 mg (NOW).
--- NOTE | 2016-12-17 22:28 | ED MAR SUMMARY ---
..... Medication Administration Record [facility] [address] [place] [address] Patient: STIVEN JUAN Visit ID: [id number] 71y, M Weight: 68.0 kg Height/Length: 64 in BMI: 25.8 ALLERGIES: No Known Drug Allergy Given 19:40 12/17/2016 Veronica Hayden R.N. Medication Administered: LASIX [IVP], Dose: 40 mg IVP over 5 minute(s), Site: #1 right AC. Medication Ordered: Lasix IV 40 mg (NOW).
--- NOTE | 2016-12-17 22:29 | ED MED RECONCILIATION SUMMARY ---
Patient: STIVEN JUAN Medication Reconciliation Report [facility] VisitID: [id number] [address] [place] [address] 71y, M Registration Date/Time: 12/17/2016 Weight: 68.0 kg Height/Length: 64 in. BMI: 25.8 ALLERGIES: No Known Drug Allergy The patient's Home Medications are listed below: THE FOLLOWING MEDICATIONS NEED TO BE RECONCILED: Calcium Lasix Oral The source(s) of the original Home Medication information: patient The following Medications were given to the patient in the Emergency Department: Lasix [IVP] IVP 40 mg, administered: 12/17/2016 7:40:00 PM The following Medications were prescribed to the patient: None.
--- NOTE | 2016-12-17 22:29 | ED MED RECONCILIATION SUMMARY ---
Patient: STIVEN JUAN Medication Reconciliation Report [facility] VisitID: [id number] [address] [place] [address] 71y, M Registration Date/Time: 12/17/2016 Weight: 68.0 kg Height/Length: 64 in. BMI: 25.8 ALLERGIES: No Known Drug Allergy The patient's Home Medications are listed below: THE FOLLOWING MEDICATIONS NEED TO BE RECONCILED: Calcium Lasix Oral The source(s) of the original Home Medication information: patient The following Medications were given to the patient in the Emergency Department: Lasix [IVP] IVP 40 mg, administered: 12/17/2016 7:40:00 PM The following Medications were prescribed to the patient: None.
[2016-12-17] MEDS ORDERED: OXAYDO5 MG PO (23:16)
[2016-12-17 23:47] VITALS: BP 158/108
[2016-12-18 02:10] VITALS: BP 170/91
--- NOTE | 2016-12-18 06:58 | Progress Note ---
Subjective General Note Date: December 18, 2016 Admission Date: December 17, 2016 Hospital Day: 2 PCP: Status: Inpatient Advanced Directive: Room: 204-S Patient is a 71 year old male with a pmh of copd, hypertension, and spinal surgery that is presenting with a 5 day history of shortness of breath.. Patient is currently stable and will be admitted for obervation. Subjective Patient is admitted under observation with shortness of breath. Patient reports that he significantly improved since onset. Steroid therapy provided relief. Patient states that he is ready to go home. Patient is not as worried about the clot in the right calf. Clinically that the clot will resolve and dissolve the time. Physical Exam Vital Signs / I&Os Vital Signs Date Time Temp Pulse Resp B/P Pulse O2 O2 Flow FiO2 Ox Delivery Rate 12/18 0210 98.6 91 16 170/91 94 Nasal 3.0 Cannula 12/17 2347 98.4 102 18 158/108 88 Nasal 3.0 Cannula 12/17 2330 Nasal 3.0 Cannula 12/17 1730 2.0 12/17 1306 2.0 I&O 12/17 0800 12/17 1600 12/18 0000 Intake Total 220 Output Total 300 Balance -80 General Appearance Oriented X3, Cooperative HEENT EOMI, nasal cannula in place Lungs air movement is adequate. Random wheeze or crackles Neck Supple Cardiovascular Normal S1 and S2 Abdomen Soft LAB Results Laboratory Tests 12/18 0610 Chemistry Plasma Sodium (136 - 145 mmol/L) 144 Plasma Potassium (3.5 - 5.1 mmol/L) 5.0 Plasma Chloride (98 - 107 mmol/L) 99 CO2 (Enzymatic) (21 - 32 mmol/L) 44 BUN (7 - 18 mg/dL) 11 Creatinine (0.6 - 1.3 mg/dL) 0.7 Est GFR ( Amer) (mL/min) >60 Est GFR (Non-Af Amer) (mL/min) >60 Glucose (70 - 110 mg/dL) 157 Plasma Calcium (8.5 - 10.1 mg/dL) 9.1 Plasma Magnesium (1.8 - 2.4 mg/dL) 2.0 Total Bilirubin (0.0 - 1.0 mg/dL) 1.9 AST (15 - 37 U/L) 16 ALT (12 - 78 U/L) 20 Alkaline Phosphatase (46 - 116 U/L) 73 Total Protein (6.4 - 8.2 g/dL) 6.2 Albumin (3.3 - 5.0 g/dL) 3.3 Hematology WBC (4.5 - 11.5 K/uL) 7.3 RBC (4.50 - 5.90 M/uL) 4.64 Hgb (13.5 - 17.5 gm/dL) 12.3 Hct (41.0 - 53.0 %) 39.3 MCV (80 - 100 fL) 85 MCH (26 - 34 pg) 27 RDW (11.6 - 14.8 %) 17.2 Neut % (Auto) (50 - 75 %) 92.4 Lymph % (Auto) (25 - 40 %) 7.1 [place] % (Auto) (3 - 14 %) 0.5 Eos % (Auto) (0 - 4 %) 0 Baso % (Auto) (0 - 2 %) 0 Plt Count, EDTA (150 - 400 K/uL) 197 PUBS MCHC (31 - 37 g/dL) 31 Assessment and Plan Problem List 1. COPD exacerbation Plan COPD exacerbation. Continue with the steroid taper. Monitor at home. Any worsening will return to ED. Patient needs to stay in the 88-90 range on his O2 sats. Smoking cessation is advised 2. Hypertension Status Chronic Onset Date Unknown 3. CHF (congestive heart failure) Status Chronic Onset Date Unknown Plan Monitor for fluid overload. Discussed options with patient regarding his care. Patient should be mindful of weight changes, shortness of breath, orthopnea and dyspnea. Further follow-up as needed if patient has profound changes in his breathing. 4. Nicotine dependence Plan Nicotine replacement. Patient needs to be on smoking cessation. Discussed reviewed and recommended smoking cessation with the patient Current status: Fair to poor - Anticipated discharge date: Home today Anticipated discharge placement: Home Patient care time: Time spent in chart review, patient interview, physical exam, CPOE, and care documentation: 25 minutes Visit to patient today: 1 Complexity of care: Moderate E&M Codes Discharge: Observation - All/[id number]
[2016-12-18 07:11] VITALS: BP 160/97
[2016-12-18 12:51] VITALS: BP 147/80
--- NOTE | 2016-12-18 13:41 | Provider's Discharge Care Plan ---
Problem, Goal, Plan Problem List 1. COPD exacerbation Goals: Improve disease control, Improve nutrition status Instructions: Take meds as directed, Stop smoking, steroid prescription has been provided to reduce the inflammation in the lungs. 2. Hypertension Goals: Improve disease control Instructions: Follow up as directed, Stop smoking 3. CHF (congestive heart failure) Goals: Improve function, Improve nutrition status, Screening Instructions: Increase activity level, Stop smoking 4. Nicotine dependence Goals: Improved health/wellness, Normal growth/development Instructions: Follow up as directed, Stop smoking
[2016-12-18] MEDS ORDERED: PREDNISONE20 MG PO (14:03)
[2016-12-27] MEDS ORDERED: PREDNISONE20 MG PO (07:35)
[2016-12-27] MEDS ORDERED: OXAYDO5 MG PO (10:08)
== END 2016-12-18 14:20 | disposition home or self-care (01) ==
LOC: ED SRH 10:48 → TRANS SRH 20:26 → ACUTE2 SRH 20:26
PROVIDERS: ADMIT Internal Medicine
DX: J44.1 Chronic obstructive pulmonary disease with (acute) exacerbation (principal); I82.4Z2 Acute embolism and thrombosis of unspecified deep veins of left distal lower extremity; I11.0 Hypertensive heart disease with heart failure; I50.9 Heart failure, unspecified; F17.210 Nicotine dependence, cigarettes, uncomplicated

== ENCOUNTER 2016-12-23 11:01 | Inpatient (IN) | payer OTHER ==
[~2016-12-23] VITALS: Ht 175.3 cm; Wt 78.2 kg
[~2016-12-23 11:01] MED LIST changes: +OXAYDO5 MG PO; +PREDNISONE20 MG PO
--- NOTE | 2016-12-23 11:38 | DIAGNOSTIC IMAGING REPORT ---
PROCEDURE: XR CHEST 1 VIEW INDICATION: SHORTNESS OF BREATH TECHNIQUE: Portable AP view 11:27 a.m. COMPARISON: Chest 12/17/2016 FINDINGS: Probable left pleural effusion. Left upper lobe and right lung is clear. No change in cardiomegaly. IMPRESSION: 1. Possible left pleural effusion. 2. Cardiomegaly may be obscuring a left lower lobe infiltrate.
--- NOTE | 2016-12-23 12:37 | DIAGNOSTIC IMAGING REPORT ---
PROCEDURE: CT HEAD WITHOUT CONTRAST INDICATION: TRAUMA/INJURY TECHNIQUE: Axial CT images were acquired through the head. Coronal and sagittal reformations were created. COMPARISON: Head CT 07/02/2016 FINDINGS: Allowing for mild intermittent motion and rotation, brain and ventricles are within normal limits. No evidence of an acute process or hemorrhage. Sinuses and mastoids are normal. 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 IMPRESSION: 1. Negative head CT. No evidence of acute process. 2. 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 3. Findings discussed with Dr. Bernal at 12:[address] scans at this facility use dose modulation, iterative reconstruction, and/or weight-based dosing when appropriate to reduce radiation dose to as low as reasonably achievable.
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
--- NOTE | 2016-12-23 15:33 | ED ORDER SUMMARY ---
..... Patient: STIVEN JUAN OrderSheet [facility] VisitID: [id number] [place] [address] 71y, M Registration Date/Time: 12/23/2016 ORDER SHEET Weight: 76.6 kg (stated) Allergies: No Known Drug Allergy GENERAL ORDERS: Chest 1V Urgent (:12/23/2016 Karolina YOUNG) (Ack 11:23 Kaleb) (11:48 Kaleb) Consumer Educator (Continuous) (:12/23/2016 Karolina YOUNG) (12:01 LWalexys R.N.) CBC w Diff Urgent (:12/23/2016 Karolina YOUNG) (Ack 11:23 Kaleb) (14:49 Jomar R.N.) CMP Urgent (:12/23/2016 Karolina YOUNG) (Ack 11:23 Kaleb) (14:49 Jomar R.N.) UA-Culture if indicated Urgent (:12/23/2016 Karolina YOUNG) (Ack 11:23 Kaleb) (13:26 LWalexys R.N.) PT with INR Urgent (:12/23/2016 Karolina YOUNG) (Ack 11:23 Kaleb) (14:49 Jomar R.N.) PTT Urgent (:12/23/2016 Karolina YOUNG) (Ack 11:23 Kaleb) (14:49 Jomar R.N.) BNP Urgent (:12/23/2016 Karolina YOUNG) (Ack 11:23 Kaleb) (14:49 Jomar R.N.) Amylase Urgent (:12/23/2016 Karolina YOUNG) (Ack 11:23 Kaleb) (14:49 Jomar R.N.) Lipase Urgent (:12/23/2016 Karolina YOUNG) (Ack 11:23 Kaleb) (14:49 Jomar R.N.) CPK Urgent (:12/23/2016 Karolina YOUNG) (Ack 11:23 Kaleb) (14:49 Jomar R.N.) Troponin-I Urgent (11:08 12/23/2016 Karolina YOUNG) (Ack 11:23 Kaleb) (14:49 Jomar R.N.) Oxygen (2 L/min) (NC) (11:08 12/23/2016 Karolina YOUNG) (12:01 Nilson R.N.) Pulse oximeter (11:12/23/2016 Karolina YOUNG) (12:01 LWalexys R.N.) EKG - ER Stat (11:12/23/2016 Karolina YOUNG) (Ack 11:23 Kaleb) (11:45 Kaleb) CT Head wo Cont Urgent (11:12 12/23/2016 Karolina YOUNG) (Ack 11:23 Kaleb) (15:17 LWholgeren R.N.) ABG (G) Urgent (11:12/23/2016 Karolina YOUNG) (Ack 11:23 Kaleb) (12:01 LWholgeren R.N.) Blood Culture (No) (N/A) Urgent (12:15 12/23/2016 Karolina YOUNG) (Ack 12:16 PWeiler ER Tech1) (14:49 Jomar R.N.) Lactate, Serum Urgent (12:15 12/23/2016 Karolina YOUNG) (Ack 12:16 PWeiler ER Tech1) (14:49 Jomar R.N.) PICC Insertion (12:15 12/23/2016 Karolina YOUNG) (15:17 LWhalen R.N.) US Abdomen Limited (Yes) Urgent (16:05 12/23/2016 Karolina YOUNG) (Ack 16:08 PWeiler ER Tech1) (17:32 LNations ER Tech1) ABG (G) Urgent (16:45 12/23/2016 Karolina YOUNG) (Ack 16:46 PWeiler ER Tech1) MEDICATION ORDERS: DuoNeb Neb Tx 1 unit dose (NOW) (15:32 12/23/2016 Karolina YOUNG) (15:39 MNance) IV FLUIDS: IV Saline Lock (11:12/23/2016 Karolina YOUNG) (15:44 Leno R.N.) Lasix IV 20 mg (NOW) (15:32 12/23/2016 Karolina YOUNG) (16:07 Nilson Rodriguez.) Solu-MEDROL IV 125 mg (NOW) (15:32 12/23/2016 Karolina YOUNG) (16:08 Nilson Geronimo) ORDER SHEET NOTES: [Electronically signed by Kwasi Rosenberg R.N. (18:37 12/23/2016)] [Electronically signed by Sergio Bernal MD (19:51 12/23/2016)] [Electronically locked/signed by Kwasi Rosenberg R.N. (18:37 12/23/2016)]
--- NOTE | 2016-12-23 15:33 | ED CLINICAL REPORT ---
Clinical Report - Physicians/Mid Levels [facility] [address] [place] [address] 12/23/2016 11:03 Patient: STIVEN JUAN Time Seen: 11:06. Arrived- By ambulance. Historian- patient and EMS personnel. History limited by vague historian. HISTORY OF PRESENT ILLNESS Chief Complaint: FALL. The injury occurred last night. Fell. Occurred at home. The patient denies pain. The patient sustained a blow to the head. No neck pain. (patient was brought in by emergency medical services. The medics report that his grandson contacted them. Apparently he spent the night on his floor but he does not recall what happened last night. They report that he was on the ground and covered in fecesand seemed confused at the time of their arrival.). REVIEW OF SYSTEMS No chills, fever, sweats, calf pain or chest pain. No cough, palpitations, abdominal pain, constipation or diarrhea. No nausea, vomiting or urinary problems. He has had difficulty breathing. All systems otherwise negative, except as recorded above. PAST HISTORY Medications: Tylenol 8 Hour Oral. Potassium Chloride Oral. Polyethylene Glycol External. OxyCODONE HCl Oral. Metoprolol Tartrate Oral. ZyPREXA Oral. Lisinopril Oral. Advair Diskus Inhalation. Calcium. Lasix Oral. Allergies: No Known Drug Allergy. SOCIAL HISTORY Current every day light tobacco smoker (cigarette)- less than 1/2 a pack per day. No alcohol use or drug use. He lives alone. FAMILY HISTORY Denies family medical history. ADDITIONAL NOTES The nursing notes have been reviewed. PHYSICAL EXAM Vital Signs: 12/23/2016 11:10 BP: 139/77. HR: 101. RR: 29. O2 saturation: 78%. Temp: 97.5 F. Have been reviewed. Appearance: Alert. He is confused and appears frail, elderly and younger than stated age. Head: Forehead: mild swelling and small abrasion and ecchymosis. No deep abrasion. Eyes: Pupils equal, round and reactive to light. ENT: No dental injury. Pharynx normal. Neck: Painless ROM. Non-tender. No vertebral tenderness. CVS: Heart sounds normal. Respiratory: Breath sounds normal. Abdomen: No visible injury. Soft and nontender. Bowel sounds normal. No organomegaly. No mass. Back: ROM normal. Skin: Skin warm and dry. Jaundiced. Extremities: Pelvis stable. Bilateral mild pitting edema of the lower extremities involving both lower legs. LABS, X-RAYS, AND EKG EKG: Ectopic beats. Premature ventricular contractions. Q waves in lead V1 and V2. Right axis deviation. T wave inversion in lead V6. Changes present when compared to prior EKG. (17 December 2016). The study has been independently viewed by me. Chest X-ray: (IMPRESSION: 1. Possible left pleural effusion. 2. Cardiomegaly may be obscuring a left lower lobe infiltrate.). The X-rays were interpreted by the radiologist and contemporaneously by me. CT Head: (IMPRESSION: 1. Negative head CT. No evidence of acute process. 2. 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 The study was interpreted by the radiologist and contemporaneously by me. Bedside Abdominal Sonogram: No acute disease. Laboratory Tests: . UA-Culture if indicated: (ANDREIA: 12/23/2016 12:45) ( MsgRcvd 12/23/2016 13:03) Final results Test Result Flag Units (Reference) URINE COLOR YELLOW URINE APPEARANCE CLEAR URINE GLUCOSE NEGATIVE (NEGATIVE) URINE BILIRUBIN NEGATIVE (NEGATIVE) URINE KETONE TRACE (NEGATIVE) URINE SPECIFIC GRAVITY 1.025 (1.010-1.030) URINE PH 6.0 (5.0-8.0) URINE PROTEIN TRACE (NEGATIVE) URINE UROBILINOGEN 0.2 EU/dL (0.2-1.0) URINE NITRITE NEGATIVE (NEGATIVE) URINE BLOOD TRACE-INTACT (NEGATIVE) URINE LEUK ESTERASE NEGATIVE (NEGATIVE) URINE RBC 1-3 rbc/hpf (0-1) URINE WBC 0-1 wbc/hpf (0-1) URINE EPITHELIAL CELLS 10-15 EPI/hpf (0-5) URINE BACTERIA TRACE (<1+) (NONE SEEN) URINE COMMENT CULT NOT INDICATED 1+ MUCUSURINE CULTURES ARE SET-UP BASED ON THE FOLLOWING CRITERIA:POSITIVE NITRITEPOSITIVE LEUKOCYTE ESTERASEGREATER THAN 10 WHITE BLOOD CELLSMODERATE (2+) OR GREATER BACTERIA CBC w Diff: (ANDREIA: 12/23/2016 14:13) ( [facility] 12/23/2016 14:39) Final results Test Result Flag Units (Reference) WHITE BLOOD COUNT 8.9 K/uL (4.5-11.5) RED BLOOD COUNT 4.74 M/uL (4.50-5.90) HEMOGLOBIN 12.7 L gm/dL (13.5-17.5) HEMATOCRIT 40.1 L % (41.0-53.0) MEAN CELL VOLUME 85 fL (80-100) MEAN CORPUSCULAR HGB 27 pg (26-34) MEAN CORPUSCULAR HGB CONC 32 g/dL (31-37) RED CELL DISTRIBUTION WIDTH 16.9 H % (11.6-14.8) PLATELET COUNT 163 K/uL (150-400) NEUTROPHIL % 85.8 H % (50-75) LYMPH % 5.7 L % (25-40) MONO % 8.4 % (3-14) EOSINOPHIL % 0 % (0-4) BASOPHIL % 0.1 % (0-2) PT with INR: (ANDREIA: 12/23/2016 14:13) ( [facility] 12/23/2016 14:45) Final results Test Result Flag Units (Reference) INR 1.0 (0.8-1.2) Low Intensity Therapy: INR 1.5-2.0 PT range 18.5-23.1Mod.Intensity Therapy: INR 2.0-3.0 PT range 23.1-31.5High Intensity Therapy: INR 2.5-3.5 PT range 27.4-35.5High Intensity Therapy 2: INR 3.0-4.0 PT range 31.5-39.3 APTT 30 SECONDS (24-34) Lactate, Serum: (ANDREIA: 12/23/2016 14:13) ( [facility] 12/23/2016 14:51) Final results Test Result Flag Units (Reference) LACTIC ACID 1.3 mmol/L (0.4-2.0) BNP: (ANDREIA: 12/23/2016 14:13) ( MsgRcvd 12/23/2016 15:03) Final results Test Result Flag Units (Reference) B-TYPE NATRIURETIC PEPTIDE 593 H pg/ml (5-100) CMP: (ANDREIA: 12/23/2016 12:02) ( MsgRcvd 12/23/2016 13:27) Final results Test Result Flag Units (Reference) LIPASE 67 L U/L (73-393) AMYLASE 44 U/L (25-115) CPK 214 U/L (24-260) TROPONIN I 0.06 ng/mL (0.00-1.5) TROPONIN REFERENCE RANGE:<0.1 NEGATIVE0.1-1.5 INDETERMINANT>1.5 POSITIVE GLUCOSE 84 mg/dL (70-110) BUN 15 mg/dL (7-18) CREATININE 0.6 mg/dL (0.6-1.3) Estimated GFR >60 mL/min Estimated GFR- >60 mL/min Note: Persistent reduction over 3 months in eGFR<60 mL/min/1.73 m2 defines CKD. Patients with eGFR values>=60 mL/min/1.73 m2 may also have CKD if evidence ofpersistent proteinuria. Additional information may be foundat www.kidney.org. SODIUM 144 mmol/L (136-145) POTASSIUM 5.0 mmol/L (3.5-5.1) CHLORIDE 96 L mmol/L (98-107) CARBON DIOXIDE 34 H mmol/L (21-32) CALCIUM 8.7 mg/dL (8.5-10.1) TOTAL PROTEIN 6.5 g/dL (6.4-8.2) ALBUMIN 3.5 g/dL (3.3-5.0) BILIRUBIN, TOTAL 3.2 H mg/dL (0.0-1.0) ALKALINE PHOSPHATASE 74 U/L (46-116) AST (SGOT) 28 U/L (15-37) ALT (SGPT) 46 U/L (12-78) ABG: (ANDREIA: 12/23/2016 11:20) ( MsgRcvd 12/23/2016 11:45) Final results Test Result Flag Units (Reference) FIO2 21 % (20-101) MODIFIED JIM TEST POSITIVE? YES ABG VENT MODE SB ABG PATIENT RESP RATE 26 /MIN ARTERIAL BLOOD GAS SITE RR ARTERIAL BLOOD GAS pH 7.34 L (7.35-7.45) ABG PCO2 94.0 *H mmHg (35-45) ABG PO2 23.4 *L mmHg (60.0-80.0) ABG BASE EXCESS 21.6 *H mmol/L (-6.0--6.0) ABG HCO3 50.7 *H mmol/L (20.0-26.0) ABG TCO2 53.5 *H mmol/L (24.0-30.0) ABG KiEmO1o 20.4 H mmHg (7.0-14.0) *NOTE: Normal rangeis based on aFIO2 of 21% ABG SAT O2 43.0 L % (95.1-100.0) ABG TOTAL HEMOGLOBIN 14.1 g/dL (14.0-18.0) ABG O2 HEMOGLOBIN 41.8 *L % (95.0-100.0) ABG CARBOXYHEMOGLOBIN 2.5 H % (0.5-1.5) ABG METHEMOGLOBIN 0.3 L % (0.4-1.5) ABG RHEMOGLOBIN 55.4 % . PROGRESS AND PROCEDURES Course of Care: Patient is stable. Discussed case with hospitalist, (Avis). Reviewed test results and need for additional work-up. Agreed upon treatment plan, need for patient follow-up and decision to admit. Patient/family counseled. Old medical records reviewed. Disposition: Admitted. CLINICAL IMPRESSION Changed mental status. Head injury. Congestive heart failure. COPD. Single superficial abrasion to the forehead. Abnormal tests: (Elevated bilirubin). Fall. jaundice. (Electronically signed by Sergio Bernal MD 12/23/2016 19:51)
--- NOTE | 2016-12-23 16:37 | Progress Note ---
Subjective General Admission History and Physical Examination Patient Name: Levi Salinas Admission Date: December 23, 2016 Primary Care Provider: Mitesh Burnette M.D. Attending Physician: Hugo Juárez M.D. Admitting Physician: Hugo Juárez M.D. Code Status: FULL CODE Room: 301 Status: Inpatient, CCU SUBJECTIVE Historian: Patient Reliability: Poor Chief Complaint: Shortness of breath, fall, weakness History of Present Illness: The patient is a 71-year-old white male with a significant past medical history of COPD, hypertension, CHF, bladder CA, nicotine dependence-smoking, who presented to [facility] emergency department on the day of admission secondary to complaints of shortness of breath, fall with weakness.. ER evaluation was consistent with exacerbation of COPD, CHF without acute exacerbation, hypertension, and nicotine dependence-smoking, diffuse weakness, and fall without significant injury.. Secondary to the above, the patient was admitted by Hugo Juárez M.D. for further evaluation and treatment. The history of present illness began on the day of admission when the patient was found on the floor at his home. His mental status was altered that time. He appeared confused but not disoriented. He was weak and unable to rise to a standing position. The patient states that he fell the day prior to admission and was unable to get up off the floor secondary to weakness. He denies any history of loss of consciousness. Secondary to the above the patient was transported to [facility] emergency department for further evaluation and treatment. [facility] ER evaluation was consistent with fall with generalized weakness, mildly altered mental status, exacerbation of COPD/CHF. Secondary to the above the patient was admitted to [facility] for further evaluation and treatment. PAST MEDICAL HISTORY Illnesses: 1. COPD 2. CHF 3. Hypertension 4. Nicotine dependence-Smoking 5. DVT Allergies: 1. No Known Drug Allergies Medications: 1. Aspirin 81 mg by mouth daily 2. Advair Diskus 250/50 one inhalation twice a day 3. Furosemide 20 mg by mouth daily 4. Lisinopril 5 mg by mouth daily 5. Lopressor 25 mg by mouth twice a day 6. OxyContin 10 mg by mouth every 12 hours when necessary pain 7. KCl 10 mEq by mouth daily 8. Lasix 20 mg by mouth daily 9. MiraLAX 17 g in 8 ounces water daily 10. Xarelto 15 mg by mouth twice a day (not recently taken) Surgery: 1. Surgery 2 2. Right knee surgery 3 3. Bladder surgery Injuries: 1. No significant Hospitalizations: 1. For previously mentioned surgery and medical problems FAMILY HISTORY Parents: 1. Father, Norman, , 73, cause unknown, 2. Mother, Adelita, , age unknown, cause unknown Siblings: 1. The patient has 3 siblings. Children: 1. The patient has 3 children all which are in good health. Other significant family history: None SOCIAL HISTORY 1. Marital Status: 2. Congregational: None 3. Education: Unknown 4. 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 Occupational health exposures: Dust, loud noises, heavy lifting, and solvents HABITS 1. Tobacco: 40 pack years, continues to smoke one half pack per day 2. Drugs: None 3. Alcohol: 6 ounces per week 4. Caffeine: 4 cups per day HEALTH SUPERVISION Item/Test 1. Not reviewed IMMUNIZATIONS: 1. Unknown REVIEW OF SYSTEMS Remarkable for those things stated in the history of present illness and past medical history. Seventeen point review of system completed with the following notable findings: Patient confused unobtainable. Physical Exam Vital Signs / I&Os Blood pressure: 162/75 mmHg Heart rate: 114/minute Respiratory rate: 20/minute Temperature: 99.0 Fahrenheit orally Pulse oximetry: 93% nasal cannula 2 L/m General Appearance Alert, Cooperative, No acute distress, confused HEENT PERRLA, EOMI, Moist mucous membranes, contusion right forehead Lungs basilar rales, decreased air movement bilaterally. Mild expiratory wheezes. Neck Supple, No JVD Cardiovascular Normal S1 and S2, mild tachycardia, rhythm regular. Abdomen Normal bowel sounds, Soft, No tenderness, No guarding Extremities No cyanosis, No clubbing, 1+ pedal edema bilaterally Skin No Significant Lesions Neurological Cranial nerves intact, No lateralizing signs Psych/Mental Status Mood normal, Confused LAB Results Laboratory Tests 12/23 12/23 12/23 12/23 1413 1413 1245 1202 Chemistry Plasma Sodium (136 - 145 mmol/L) 144 Plasma Potassium (3.5 - 5.1 mmol/L) 5.0 Plasma Chloride (98 - 107 mmol/L) 96 CO2 (Enzymatic) (21 - 32 mmol/L) 34 BUN (7 - 18 mg/dL) 15 Creatinine (0.6 - 1.3 mg/dL) 0.6 Est GFR ( Amer) (mL/min) >60 Est GFR (Non-Af Amer) (mL/min) >60 Glucose (70 - 110 mg/dL) 84 Lactic Acid (0.4 - 2.0 mmol/L) 1.3 Plasma Calcium (8.5 - 10.1 mg/dL) 8.7 Total Bilirubin (0.0 - 1.0 mg/dL) 3.2 AST (15 - 37 U/L) 28 ALT (12 - 78 U/L) 46 Alkaline Phosphatase (46 - 116 U/L) 74 Creatine Kinase (24 - 260 U/L) 214 Troponin (0.00 - 1.5 ng/mL) 0.06 B-Natriuretic Peptide (5 - 100 pg/ml) 593 Total Protein (6.4 - 8.2 g/dL) 6.5 Albumin (3.3 - 5.0 g/dL) 3.5 Amylase (25 - 115 U/L) 44 Lipase (73 - 393 U/L) 67 Coagulation INR (0.8 - 1.2) 1.0 APTT (24 - 34 SECONDS) 30 Hematology WBC (4.5 - 11.5 K/uL) 8.9 RBC (4.50 - 5.90 M/uL) 4.74 Hgb (13.5 - 17.5 gm/dL) 12.7 Hct (41.0 - 53.0 %) 40.1 MCV (80 - 100 fL) 85 MCH (26 - 34 pg) 27 RDW (11.6 - 14.8 %) 16.9 Neut % (Auto) (50 - 75 %) 85.8 Lymph % (Auto) (25 - 40 %) 5.7 Giles % (Auto) (3 - 14 %) 8.4 Eos % (Auto) (0 - 4 %) 0 Baso % (Auto) (0 - 2 %) 0.1 Plt Count, EDTA (150 - 400 K/uL) 163 PUBS MCHC (31 - 37 g/dL) 32 Urines Urine Color YELLOW Urine Appearance CLEAR Urine pH (5.0 - 8.0) 6.0 Ur Specific Cutler (1.010 - 1.030) 1.025 Urine Protein (NEGATIVE) TRACE Urine Ketones (NEGATIVE) TRACE Urine Blood (NEGATIVE) TRACE-INTACT Urine Nitrite (NEGATIVE) NEGATIVE Urine Bilirubin (NEGATIVE) NEGATIVE Urine Urobilinogen (0.2 - 1.0 EU/dL) 0.2 Ur Leukocyte Esterase (NEGATIVE) NEGATIVE Urine RBC (0 - 1 rbc/hpf) 1-3 Urine WBC (0 - 1 wbc/hpf) 0-1 Ur Epithelial Cells (0 - 5 EPI/hpf) 10-15 Urine Bacteria (NONE SEEN) TRACE (<1+) Urine Glucose (NEGATIVE) NEGATIVE Urine Comment CULT NOT INDICATED 12/23 1120 Blood Gas Sample Site RR Total CO2 (24.0 - 30.0 mmol/L) 53.5 ABG pH (7.35 - 7.45) 7.34 ABG pCO2 at Pt Temp (35 - 45 mmHg) 94.0 ABG pO2 at Pt Temp (60.0 - 80.0 mmHg) 23.4 ABG HCO3 (20.0 - 26.0 mmol/L) 50.7 ABG O2 Sat Calc/Sabrina (95.1 - 100.0 %) 43.0 ABG Base Excess (-6.0 - -6.0 mmol/L) 21.6 ABG Reduced Hgb (%) 55.4 ABG Carboxyhemoglobin (0.5 - 1.5 %) 2.5 ABG Methemoglobin (0.4 - 1.5 %) 0.3 Richard Test YES Other Total Hgb (14.0 - 18.0 g/dL) 14.1 A-a O2 Gradient (7.0 - 14.0 mmHg) 20.4 Hgb O2 Saturation (95.0 - 100.0 %) 41.8 Respiration Rate (/MIN) 26 Vent Mode SB FiO2 (20 - 101 %) 21 Microbiology Date/Time Procedure - Status Source Growth 12/23 1412 Blood Culture - RECD BLOOD 12/23 1412 Blood Culture - RECD BLOOD Imaging Chest X-Ray IMPRESSION: 1. Possible left pleural effusion. 2. Cardiomegaly may be obscuring a left lower lobe infiltrate. Dictated by: CAROLINE CERVANTES MD D: GERRY;12/23/[address] Scan Head IMPRESSION: 1. Negative head CT. No evidence of acute process. 2. 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 3. Findings discussed with Dr. Bernal at 12:30 p.m. Dictated by: CAROLINE CERVANTES MD D: GERRY;12/23/16 1237 Abdominal Ultrasound IMPRESSION: 1. Normal right upper quadrant ultrasound. Dictated by: JOSETTE MAURICIO MD D: BRISEYDA;12/23/16 5686 Assessment and Plan Problem List 1. COPD exacerbation Plan -Patient presents with findings of exacerbation of COPD -Hypoxic/hypercarbic respiratory failure well compensated -Arterial blood gas: PH-7.34, PCO2 94, PO2 23.4 -Supplemental oxygen as necessary -DuoNeb one via nebulizer every 6 hours, albuterol 2.5 mg via nebulizer every 3 hours when necessary shortness of breath, Solu-Medrol 40 mg IV every 8 hours -Monitor 2. Hypertension Status Chronic Onset Date Unknown Plan -Blood pressure mildly elevated, BP on admission 150/90 mmHg -Patient placed on lisinopril 5 mg by mouth daily, Lasix 20 mg IV now followed by 20 mg by mouth daily, Lopressor 25 mg by mouth twice a day, nitroglycerin paste one-inch topically every 6 hours -Monitor -Low-salt diet 3. Nicotine dependence Plan -Patient with history of nicotine dependence-smoking -Smoking cessation education -NicoDerm patch -Encourage patient to follow a smoking abstinence program post discharge -Patient aware of the health risks of ongoing tobacco usage/cigarette smoking 4. Hyperbilirubinemia Status Chronic Onset Date Unknown Plan -Patient with findings of mild hyperbilirubinemia -Hepatic ultrasound unremarkable -Hepatic transaminases unremarkable, alkaline phosphatase unremarkable -Most likely represents Gilbert's syndrome. -Monitor 5. CHF (congestive heart failure) Status Chronic Onset Date Unknown Plan -Patient with history of CHF, ejection fraction 20-25% -Systolic heart failure -Continue LARS inhibitor, beta angela, nitrates, and diuretics. Consider addition of Aldactone. -Low-salt diet -Monitor 6. Anemia Status Acute Onset Date Unknown Plan -Patient with findings of mild anemia -Check iron studies, B12, folate if not done recently -Monitor -Stool Hemoccult 7. Mental status change Status Acute Onset Date Unknown Plan -The patient presented with altered mental status. -It is unclear whether this may represent mental status changes associated with severe hypercarbia -Patient oriented to person and place. Not time -No focal neurological deficits identified -CT scan unremarkable -Hold narcotic analgesics. -No clear evidence of syncope. Patient states he is aware of fall resulting in his admission. -Monitor -Telemetry to rule out arrhythmia 8. DVT (deep venous thrombosis) Status Chronic Onset Date Unknown Plan -Patient with history of DVT or thrombosis -Patient currently on Xarelto 15 mg by mouth twice a day, not recently taken -Continue outpatient medical regimen -Monitor, check stool Hemoccult secondary to findings of anemia Current status: Fair-unstable Anticipated discharge date: Anticipated discharge in 2-3 days Anticipated discharge placement: [facility] facility Patient care time: Time spent in chart review, patient interview, physical exam, CPOE, and care documentation: 70 minutes Visit to patient today: 2 Complexity of care: High DVT prophylaxis: Xarelto 15 mg by mouth twice a day GI prophylaxis: Protonix 40 mg by mouth daily Initial patient evaluation: Emergency department Advance care plan: Advance care plan established. CODE STATUS-Full Code. Advanced care plan documented. E&M Codes Admission: Inpt-High/[id number]
--- NOTE | 2016-12-23 18:04 | DIAGNOSTIC IMAGING REPORT ---
PROCEDURE: US ABDOMEN ULTRASOUND-LIMITED INDICATION: ABNORMAL LFT TECHNIQUE: Mosley scale and color Doppler sonographic images were obtained of the right upper quadrant. COMPARISON: CT abdomen pelvis 07/28/2016 FINDINGS: The liver is normal in size, contour, and echotexture. No mass or biliary dilatation. The gallbladder is normal without stones or sludge. Normal wall thickness at 1.6 mm. No pericholecystic fluid or Wayne's sign. Normal common duct size at 3 mm. The visible portion of the inferior vena cava, abdominal aorta, and portal vein appear normal with appropriate direction of flow in the portal vein. The right kidney is normal measuring 11.0 cm. No free fluid in the right upper quadrant. IMPRESSION: 1. Normal right upper quadrant ultrasound.
[2016-12-23 18:15] VITALS: BP 160/79
[2016-12-23 19:05] VITALS: BP 136/82
--- NOTE | 2016-12-23 19:51 | ED DISCHARGE INSTRUCTIONS ---
Patient: STIVEN JUAN General Instructions [facility] VisitID: [id number] [address] [place] [address] 71y, M Registration Date/Time: 12/23/2016 Changed mental status. Head injury. Congestive heart failure. COPD. Single superficial abrasion to the forehead. Abnormal tests: (Elevated bilirubin). Fall. jaundice. (Electronically signed by Sergio Bernal MD 12/23/2016 19:51)
--- NOTE | 2016-12-23 19:51 | ED MAR SUMMARY ---
..... Medication Administration Record [facility] [address] [place] [address] Patient: STIVEN JUAN Visit ID: [id number] 71y, M Weight: 76.6 kg Height/Length: 69 in BMI: 25 ALLERGIES: No Known Drug Allergy Given 15:39 12/23/2016 Chino Etienne, Medication Administered: DUONEB [NEB TX] (IPRATROPIUM-ALBUTEROL), Dose: 1 unit dose Neb TX. Medication Ordered: DuoNeb Neb Tx 1 unit dose (NOW). Given 15:57 12/23/2016 Kwasi Rosenberg R.N. Medication Administered: LASIX [IVP], Dose: 20 mg IVP over 2 minute(s), Site: #2 right AC. Medication Ordered: Lasix IV 20 mg (NOW). Given 16:08 12/23/2016 Kwasi Rosenberg RLesterN. Medication Administered: SOLU-MEDROL [IVP] (METHYLPREDNISOLONE SODIUM SUCC), Dose: 125 mg IVP over 2 minute(s), Site: #2 right AC. Medication Ordered: Solu-MEDROL IV 125 mg (NOW).
--- NOTE | 2016-12-23 19:51 | ED MAR SUMMARY ---
..... Medication Administration Record [facility] [address] [place] [address] Patient: STIVEN JUAN Visit ID: [id number] 71y, M Weight: 76.6 kg Height/Length: 69 in BMI: 25 ALLERGIES: No Known Drug Allergy Given 15:39 12/23/2016 Chino Etienne, Medication Administered: DUONEB [NEB TX] (IPRATROPIUM-ALBUTEROL), Dose: 1 unit dose Neb TX. Medication Ordered: DuoNeb Neb Tx 1 unit dose (NOW). Given 15:57 12/23/2016 Kwasi Rosenberg R.N. Medication Administered: LASIX [IVP], Dose: 20 mg IVP over 2 minute(s), Site: #2 right AC. Medication Ordered: Lasix IV 20 mg (NOW). Given 16:08 12/23/2016 Kwasi Rosenberg RLesterN. Medication Administered: SOLU-MEDROL [IVP] (METHYLPREDNISOLONE SODIUM SUCC), Dose: 125 mg IVP over 2 minute(s), Site: #2 right AC. Medication Ordered: Solu-MEDROL IV 125 mg (NOW).
--- NOTE | 2016-12-23 19:51 | ED MED RECONCILIATION SUMMARY ---
Patient: STIVEN JUAN Medication Reconciliation Report [facility] VisitID: [id number] [address] [place] [address] 71y, M Registration Date/Time: 12/23/2016 Weight: 76.6 kg Height/Length: 69 in. BMI: 25.0 ALLERGIES: No Known Drug Allergy The patient's Home Medications are listed below: THE FOLLOWING MEDICATIONS NEED TO BE RECONCILED: Advair Diskus Inhalation Calcium Lasix Oral Lisinopril Oral Metoprolol Tartrate Oral OxyCODONE HCl Oral Polyethylene Glycol External Potassium Chloride Oral Tylenol 8 Hour Oral ZyPREXA Oral The source(s) of the original Home Medication information: Not obtained. The following Medications were given to the patient in the Emergency Department: Duoneb [Neb Tx] Neb TX 1 unit dose, administered: 12/23/2016 3:39:00 PM Lasix [IVP] IVP 20 mg, administered: 12/23/2016 3:57:00 PM SOLU-MEDROL [IVP] IVP 125 mg, administered: 12/23/2016 4:08:00 PM The following Medications were prescribed to the patient: None.
--- NOTE | 2016-12-23 19:51 | ED MED RECONCILIATION SUMMARY ---
Patient: STIVEN JUAN Medication Reconciliation Report [facility] VisitID: [id number] [address] [place] [address] 71y, M Registration Date/Time: 12/23/2016 Weight: 76.6 kg Height/Length: 69 in. BMI: 25.0 ALLERGIES: No Known Drug Allergy The patient's Home Medications are listed below: THE FOLLOWING MEDICATIONS NEED TO BE RECONCILED: Advair Diskus Inhalation Calcium Lasix Oral Lisinopril Oral Metoprolol Tartrate Oral OxyCODONE HCl Oral Polyethylene Glycol External Potassium Chloride Oral Tylenol 8 Hour Oral ZyPREXA Oral The source(s) of the original Home Medication information: Not obtained. The following Medications were given to the patient in the Emergency Department: Duoneb [Neb Tx] Neb TX 1 unit dose, administered: 12/23/2016 3:39:00 PM Lasix [IVP] IVP 20 mg, administered: 12/23/2016 3:57:00 PM SOLU-MEDROL [IVP] IVP 125 mg, administered: 12/23/2016 4:08:00 PM The following Medications were prescribed to the patient: None.
--- NOTE | 2016-12-23 19:51 | ED DISCHARGE INSTRUCTIONS ---
Patient: STIVEN JUAN General Instructions [facility] VisitID: [id number] [address] [place] [address] 71y, M Registration Date/Time: 12/23/2016 Changed mental status. Head injury. Congestive heart failure. COPD. Single superficial abrasion to the forehead. Abnormal tests: (Elevated bilirubin). Fall. jaundice. (Electronically signed by Sergio Bernal MD 12/23/2016 19:51)
[2016-12-23 20:00] VITALS: BP 138/80
[2016-12-23 22:00] VITALS: BP 137/75
[2016-12-23 22:10] VITALS: BP 148/92
[2016-12-23 23:14] VITALS: BP 168/89
[2016-12-24] VITALS (17 sets, daily range): BP systolic 97–155; BP diastolic 51–92
--- NOTE | 2016-12-24 06:06 | Progress Note ---
Subjective General ADVANCED CARE PLAN History of Present Illness The patient is a 71-year-old white male with a significant past medical history of COPD, hypertension, CHF, bladder CA, nicotine dependence-smoking, who presented to [facility] emergency department on the day of admission secondary to complaints of shortness of breath, fall with weakness.. ER evaluation was consistent with exacerbation of COPD, CHF, hypertension, and nicotine dependence -smoking, diffuse weakness, and fall without significant injury.. Secondary to the above, the patient was admitted by Hugo Juárez M.D. for further evaluation and treatment. For other history present illness, past medical history, family history, social history, review of systems, and admission physical examination please see the patient's history and physical examination and ER visit note in the patient's medical record. A discussion was undertaken with the patient regarding previous advance care arrangements/decisions. The following advanced directives were noted by the patient and discussed with me at the time of admission. ADVANCED DIRECTIVES: 1. Living well: No 2. POLST: No 3. CODE STATUS: FULL CODE 4. Durable Power [employer] Health care: Yes 5. Donor card: No The patient has expressed interest in pursuing full cardiopulmonary support at the time of cardiopulmonary arrest. The patient has been placed on a FULL CODE STATUS. The patient's wishes were documented in the chart and orders regarding the patient's wishes entered into the [employer] CPOE system. The "Advance Care Plan Document" was not distributed to patient to discuss with his family. Less than 30 minutes was spent in performing the above tasks and documentation of the patient's advanced care plan.
--- NOTE | 2016-12-24 06:06 | Progress Note ---
Subjective General ADVANCED CARE PLAN History of Present Illness The patient is a 71-year-old white male with a significant past medical history of COPD, hypertension, CHF, bladder CA, nicotine dependence-smoking, who presented to [facility] emergency department on the day of admission secondary to complaints of shortness of breath, fall with weakness.. ER evaluation was consistent with exacerbation of COPD, CHF, hypertension, and nicotine dependence -smoking, diffuse weakness, and fall without significant injury.. Secondary to the above, the patient was admitted by Hugo Juárez M.D. for further evaluation and treatment. For other history present illness, past medical history, family history, social history, review of systems, and admission physical examination please see the patient's history and physical examination and ER visit note in the patient's medical record. A discussion was undertaken with the patient regarding previous advance care arrangements/decisions. The following advanced directives were noted by the patient and discussed with me at the time of admission. ADVANCED DIRECTIVES: 1. Living well: No 2. POLST: No 3. CODE STATUS: FULL CODE 4. 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 Donor card: No The patient has expressed interest in pursuing full cardiopulmonary support at the time of cardiopulmonary arrest. The patient has been placed on a FULL CODE STATUS. The patient's wishes were documented in the chart and orders regarding the patient's wishes entered into the [employer] CPOE system. The "Advance Care Plan Document" was not distributed to patient to discuss with his family. Less than 30 minutes was spent in performing the above tasks and documentation of the patient's advanced care plan.
--- NOTE | 2016-12-24 07:03 | Progress Note ---
Subjective General Note Date: December 24, 2016 Admission Date: December 23, 2016 Hospital Day: 2 PCP: Mitesh Burnette M.D. Status: Inpatient, CCU CODE STATUS: Full code Room: 303 Brief History: [ ] Subjective: The patient [subjective] Patient requests: [patient requests] Cancer Physical Exam Vital Signs / I&Os Vital Signs Date Time Temp Pulse Resp B/P Pulse O2 O2 Flow FiO2 Ox Delivery Rate 12/24 0610 92 32 117/73 92 Nasal 1.5 Cannula 12/24 0509 98 30 109/90 88 Nasal 1.5 Cannula 12/24 0410 96 32 107/65 88 Nasal 2.0 Cannula 12/24 0309 105 30 106/67 91 Nasal 1.0 Cannula 12/24 0215 97.5 101 27 133/66 96 Nasal 1.0 Cannula 12/24 0110 97.9 103 26 112/59 92 Nasal 1.0 Cannula 12/24 0105 1.0 12/24 0015 98 33 155/90 94 Nasal 1.0 Cannula 12/23 2314 90 30 168/89 92 Nasal 1.0 Cannula 12/23 2210 98.6 90 20 148/92 91 Nasal 1.0 Cannula 12/23 2200 99.3 91 29 137/75 89 Nasal 2.0 Cannula 12/23 2009 Nasal 2.0 Cannula 12/23 2000 99.0 92 34 138/80 92 Nasal Cannula 12/23 1959 118 12/23 1922 2.0 12/23 1905 99.0 94 34 136/82 94 Nasal 2.0 Cannula 12/23 1815 118 30 160/79 92 Nasal 3.0 Cannula 12/23 1630 3.0 I&O 12/24 0000 01 1600 12/23 0800 Intake Total Output Total 1650 Balance -1650 LAB Results Laboratory Tests 12/24 12/24 12/24 12/24 12/23 0420 0420 0420 0420 1645 Blood Gas Sample Site LR Total CO2 (24.0 - 30.0 mmol/L) 54.8 ABG pH (7.35 - 7.45) 7.36 ABG pCO2 at Pt Temp (35 - 45 mmHg) 91.8 ABG pO2 at Pt Temp (60.0 - 80.0 mmHg) 50.2 ABG HCO3 (20.0 - 26.0 mmol/L) 52.0 ABG O2 Sat Calc/Sabrina (95.1 - 100.0 %) 86.5 ABG Base Excess (-6.0 - -6.0 mmol/L) 23.6 ABG Reduced Hgb (%) 13.1 ABG Carboxyhemoglobin (0.5 - 1.5 %) 2.7 ABG Methemoglobin (0.4 - 1.5 %) 0.2 Richard Test YES Other Total Hgb (14.0 - 18.0 g/dL) 12.7 A-a O2 Gradient (7.0 - 14.0 mmHg) 75.9 Hgb O2 Saturation (95.0 - 100.0 %) 84.0 O2 Liters/Min (0 - 20 L/MIN) 3 FiO2 (20 - 101 %) Pending Chemistry Plasma Sodium (136 - 145 mmol/L) 143 Plasma Potassium (3.5 - 5.1 mmol/L) 4.0 Plasma Chloride (98 - 107 mmol/L) 95 CO2 (Enzymatic) (21 - 32 mmol/L) 47 BUN (7 - 18 mg/dL) 16 Creatinine (0.6 - 1.3 mg/dL) 0.8 Est GFR ( Amer) (mL/min) >60 Est GFR (Non-Af Amer) (mL/min) >60 Glucose (70 - 110 mg/dL) 225 Plasma Calcium (8.5 - 10.1 mg/dL) 8.2 Iron (35 - 150 ug/dL) 28 TIBC (260 - 445 ug/dL) 297 Iron Saturation (15 - 50 %) 9 Total Bilirubin (0.0 - 1.0 mg/dL) 2.7 AST (15 - 37 U/L) 20 ALT (12 - 78 U/L) 32 Alkaline Phosphatase (46 - 116 U/L) 58 B-Natriuretic Peptide (5 - 100 pg/ml) 551 Total Protein (6.4 - 8.2 g/dL) 5.6 Albumin (3.3 - 5.0 g/dL) 2.9 Vitamin B12 (211 - 946 pg/mL) 290 Folate (>3.0 ng/mL) 10 Hematology WBC (4.5 - 11.5 K/uL) 5.8 RBC (4.50 - 5.90 M/uL) 4.18 Hgb (13.5 - 17.5 gm/dL) 11.2 Hct (41.0 - 53.0 %) 35.1 MCV (80 - 100 fL) 84 MCH (26 - 34 pg) 27 RDW (11.6 - 14.8 %) 17.3 Neut % (Auto) (50 - 75 %) 80 Lymph % (Auto) (25 - 40 %) 7 [place] % (Auto) (3 - 14 %) 0 Eos % (Auto) (0 - 4 %) 0 Baso % (Auto) (0 - 2 %) 0 Band Neutrophils % (0 - 8 %) 13 Metamyelocytes % (0 - 1 %) 0 Myelocytes (0 - 1 %) 0 Other Cell Type 0 Plt Count, EDTA (150 - 400 K/uL) 158 Hypochromic-Microcytic 2+ Anisocytosis (manual) 1+ PUBS MCHC (31 - 37 g/dL) 32 12/23 12/23 12/23 12/23 1415 1413 1413 1245 Chemistry Lactic Acid (0.4 - 2.0 mmol/L) 1.3 Troponin (0.00 - 1.5 ng/mL) 0.05 B-Natriuretic Peptide (5 - 100 pg/ml) 593 TSH 3rd Generation (0.30 - 3.74 uIU/mL) 0.701 Coagulation INR (0.8 - 1.2) 1.0 APTT (24 - 34 SECONDS) 30 Hematology WBC (4.5 - 11.5 K/uL) 8.9 RBC (4.50 - 5.90 M/uL) 4.74 Hgb (13.5 - 17.5 gm/dL) 12.7 Hct (41.0 - 53.0 %) 40.1 MCV (80 - 100 fL) 85 MCH (26 - 34 pg) 27 RDW (11.6 - 14.8 %) 16.9 Neut % (Auto) (50 - 75 %) 85.8 Lymph % (Auto) (25 - 40 %) 5.7 [place] % (Auto) (3 - 14 %) 8.4 Eos % (Auto) (0 - 4 %) 0 Baso % (Auto) (0 - 2 %) 0.1 Plt Count, EDTA (150 - 400 K/uL) 163 PUBS MCHC (31 - 37 g/dL) 32 Urines Urine Color YELLOW Urine Appearance CLEAR Urine pH (5.0 - 8.0) 6.0 Ur Specific [place] (1.010 - 1.030) 1.025 Urine Protein (NEGATIVE) TRACE Urine Ketones (NEGATIVE) TRACE Urine Blood (NEGATIVE) TRACE-INTACT Urine Nitrite (NEGATIVE) NEGATIVE Urine Bilirubin (NEGATIVE) NEGATIVE Urine Urobilinogen (0.2 - 1.0 EU/dL) 0.2 Ur Leukocyte Esterase (NEGATIVE) NEGATIVE Urine RBC (0 - 1 rbc/hpf) 1-3 Urine WBC (0 - 1 wbc/hpf) 0-1 Ur Epithelial Cells (0 - 5 EPI/hpf) 10-15 Urine Bacteria (NONE SEEN) TRACE (<1+) Urine Glucose (NEGATIVE) NEGATIVE Urine Comment CULT NOT INDICATED 12/23 12/23 1202 1120 Blood Gas Sample Site RR Total CO2 (24.0 - 30.0 mmol/L) 53.5 ABG pH (7.35 - 7.45) 7.34 ABG pCO2 at Pt Temp (35 - 45 mmHg) 94.0 ABG pO2 at Pt Temp (60.0 - 80.0 mmHg) 23.4 ABG HCO3 (20.0 - 26.0 mmol/L) 50.7 ABG O2 Sat Calc/Sabrina (95.1 - 100.0 %) 43.0 ABG Base Excess (-6.0 - -6.0 mmol/L) 21.6 ABG Reduced Hgb (%) 55.4 ABG Carboxyhemoglobin (0.5 - 1.5 %) 2.5 ABG Methemoglobin (0.4 - 1.5 %) 0.3 Richard Test YES Other Total Hgb (14.0 - 18.0 g/dL) 14.1 A-a O2 Gradient (7.0 - 14.0 mmHg) 20.4 Hgb O2 Saturation (95.0 - 100.0 %) 41.8 Respiration Rate (/MIN) 26 Vent Mode SB FiO2 (20 - 101 %) 21 Chemistry Plasma Sodium (136 - 145 mmol/L) 144 Plasma Potassium (3.5 - 5.1 mmol/L) 5.0 Plasma Chloride (98 - 107 mmol/L) 96 CO2 (Enzymatic) (21 - 32 mmol/L) 34 BUN (7 - 18 mg/dL) 15 Creatinine (0.6 - 1.3 mg/dL) 0.6 Est GFR ( Amer) (mL/min) >60 Est GFR (Non-Af Amer) (mL/min) >60 Glucose (70 - 110 mg/dL) 84 Plasma Calcium (8.5 - 10.1 mg/dL) 8.7 Total Bilirubin (0.0 - 1.0 mg/dL) 3.2 AST (15 - 37 U/L) 28 ALT (12 - 78 U/L) 46 Alkaline Phosphatase (46 - 116 U/L) 74 Creatine Kinase (24 - 260 U/L) 214 Troponin (0.00 - 1.5 ng/mL) 0.06 Total Protein (6.4 - 8.2 g/dL) 6.5 Albumin (3.3 - 5.0 g/dL) 3.5 Amylase (25 - 115 U/L) 44 Lipase (73 - 393 U/L) 67 Microbiology Date/Time Procedure - Status Source Growth 12/24 0000 MRSA Screen - RECD NASAL 12/23 1412 Blood Culture - RECD BLOOD 12/23 1412 Blood Culture - RECD BLOOD
--- NOTE | 2016-12-24 08:58 | Progress Note ---
Subjective General doing much better now very alert and comfortable states breathing improved, no fever or chills occasional cough, and sputum no chest pain Physical Exam Vital Signs / I&Os Vital Signs Date Time Temp Pulse Resp B/P Pulse O2 O2 Flow FiO2 Ox Delivery Rate 12/24 0830 98.1 05 0816 108 32 112/51 90 Nasal 2.0 Cannula 12/24 0740 1.0 12/24 0715 28 90 12/24 0700 99 28 132/80 88 Nasal 1.5 Cannula 12/24 0610 92 32 117/73 92 Nasal 1.5 Cannula 12/24 0509 98 30 109/90 88 Nasal 1.5 Cannula 12/24 0410 96 32 107/65 88 Nasal 2.0 Cannula 12/24 0309 105 30 106/67 91 Nasal 1.0 Cannula 12/24 0215 97.5 101 27 133/66 96 Nasal 1.0 Cannula 12/24 0110 97.9 103 26 112/59 92 Nasal 1.0 Cannula 12/24 0105 1.0 12/24 0015 98 33 155/90 94 Nasal 1.0 Cannula 12/23 2314 90 30 168/89 92 Nasal 1.0 Cannula 12/23 2210 98.6 90 20 148/92 91 Nasal 1.0 Cannula 12/23 2200 99.3 91 29 137/75 89 Nasal 2.0 Cannula 12/23 2009 Nasal 2.0 Cannula 12/23 2000 99.0 92 34 138/80 92 Nasal Cannula 12/23 1959 118 05/ 1922 2.0 12/23 1905 99.0 94 34 136/82 94 Nasal 2.0 Cannula 12/23 1815 118 30 160/79 92 Nasal 3.0 Cannula 12/23 1630 3.0 I&O 12/24 0000 0501 1600 05 0800 Intake Total Output Total 1650 Balance -1650 General Appearance No acute distress Lungs Normal exam (decreased breath sound all ove) Cardiovascular Normal S1 and S2 Extremities No edema Assessment and Plan Problem List 1. COPD exacerbation Plan improved, might need SNIF, one blood culture is positive but no other signs of infection if the other set came positive will consider abx 2. CHF (congestive heart failure) Status Chronic Onset Date Unknown Plan stable,continue current meds 3. Mental status change Status Acute Onset Date Unknown Plan improved 4. Anemia Plan will do stool for occult blood
[2016-12-25 03:37] VITALS: BP 156/85
[2016-12-25 06:17] VITALS: BP 143/98
--- NOTE | 2016-12-25 07:24 | Progress Note ---
Subjective General doing well no dyspnea no cuogh, has small amount of sputum, no fever but chills, Pt is A&Ox3 no CP feels stronger Physical Exam Vital Signs / I&Os Vital Signs Date Time Temp Pulse Resp B/P Pulse O2 O2 Flow FiO2 Ox Delivery Rate 12/25 0621 98.6 12/25 0617 101 24 143/98 91 Nasal 1.0 Cannula 12/25 0337 98.1 64 30 156/85 91 Nasal 1.0 Cannula 12/25 0116 1.0 12/24 2248 98.8 99 30 138/90 95 Nasal 1.0 Cannula 12/24 2057 110 12/24 2006 1.0 12/24 1958 1.0 12/24 1848 99 155/92 12/24 1822 110 124/79 Nasal 93 Cannula 12/24 1800 100 140/74 12/24 1453 98.6 107 29 132/79 92 Nasal 1.0 Cannula 12/24 1350 1.0 12/24 1100 98.4 98 28 139/80 95 Nasal 2.0 Cannula 12/24 1000 98.4 102 28 117/75 95 Nasal 2.0 Cannula 12/24 0955 98.4 05/ 0900 113 32 104/57 89 Nasal 2.0 Cannula 12/24 0830 98.1 12/24 0816 108 32 112/51 90 Nasal 2.0 Cannula 12/24 0800 Nasal 2.0 Cannula 12/24 0740 1.0 I&O 12/25 0000 02 1600 0502 0800 Intake Total 1877 773 0920 Output Total 800 690 550 Balance 386 -210 1216 General Appearance No acute distress Lungs decreased air exchange all over lungs Cardiovascular Regular rate and rhythm, Normal S1 and S2, No murmurs, gallops, rubs Extremities No edema LAB Results Laboratory Tests 12/25 414 Chemistry Plasma Sodium (136 - 145 mmol/L) 140 Plasma Potassium (3.5 - 5.1 mmol/L) 4.0 Plasma Chloride (98 - 107 mmol/L) 99 CO2 (Enzymatic) (21 - 32 mmol/L) 46 BUN (7 - 18 mg/dL) 12 Creatinine (0.6 - 1.3 mg/dL) 0.8 Est GFR ( Amer) (mL/min) >60 Est GFR (Non-Af Amer) (mL/min) >60 Glucose (70 - 110 mg/dL) 175 Plasma Calcium (8.5 - 10.1 mg/dL) 8.2 Hematology WBC (4.5 - 11.5 K/uL) 8.6 RBC (4.50 - 5.90 M/uL) 4.26 Hgb (13.5 - 17.5 gm/dL) 11.3 Hct (41.0 - 53.0 %) 35.9 MCV (80 - 100 fL) 84 MCH (26 - 34 pg) 27 RDW (11.6 - 14.8 %) 17.7 Neut % (Auto) (50 - 75 %) 87.1 Lymph % (Auto) (25 - 40 %) 6.3 [place] % (Auto) (3 - 14 %) 6.6 Eos % (Auto) (0 - 4 %) 0 Baso % (Auto) (0 - 2 %) 0 Plt Count, EDTA (150 - 400 K/uL) 175 PUBS MCHC (31 - 37 g/dL) 32 Assessment and Plan Problem List 1. COPD exacerbation Plan stablized now, decrease Solu medrol to 40mg bid, talked to technical services assistant the gram negative rods in blood culture actually are gram positive rods, along with gram positive cocci in other blood chance of contamination is high but will continue Rocephin for now 2. CHF (congestive heart failure) Status Chronic Onset Date Unknown Plan stable continue current meds 3. Anemia Status Acute Onset Date Unknown Plan stable, stool for occult blood negative, on iron 4. Mental status change Status Acute Onset Date Unknown Plan A&O x 3 now ready to be discharged to [facility] as soon as available
--- NOTE | 2016-12-25 07:24 | Progress Note ---
Subjective General doing well no dyspnea no cuogh, has small amount of sputum, no fever but chills, Pt is A&Ox3 no CP feels stronger Physical Exam Vital Signs / I&Os Vital Signs Date Time Temp Pulse Resp B/P Pulse O2 O2 Flow FiO2 Ox Delivery Rate 12/25 0621 98.6 12/25 0617 101 24 143/98 91 Nasal 1.0 Cannula 12/25 0337 98.1 64 30 156/85 91 Nasal 1.0 Cannula 12/25 0116 1.0 12/24 2248 98.8 99 30 138/90 95 Nasal 1.0 Cannula 12/24 2057 110 12/24 2006 1.0 12/24 1958 1.0 12/24 1848 99 155/92 12/24 1822 110 124/79 Nasal 93 Cannula 12/24 1800 100 140/74 12/24 1453 98.6 107 29 132/79 92 Nasal 1.0 Cannula 12/24 1350 1.0 12/24 1100 98.4 98 28 139/80 95 Nasal 2.0 Cannula 12/24 1000 98.4 102 28 117/75 95 Nasal 2.0 Cannula 12/24 0955 98.4 05/ 0900 113 32 104/57 89 Nasal 2.0 Cannula 12/24 0830 98.1 12/24 0816 108 32 112/51 90 Nasal 2.0 Cannula 12/24 0800 Nasal 2.0 Cannula 12/24 0740 1.0 I&O 12/25 0000 02 1600 0502 0800 Intake Total 4515 801 3028 Output Total 800 690 550 Balance 386 -210 1216 General Appearance No acute distress Lungs decreased air exchange all over lungs Cardiovascular Regular rate and rhythm, Normal S1 and S2, No murmurs, gallops, rubs Extremities No edema LAB Results Laboratory Tests 12/25 414 Chemistry Plasma Sodium (136 - 145 mmol/L) 140 Plasma Potassium (3.5 - 5.1 mmol/L) 4.0 Plasma Chloride (98 - 107 mmol/L) 99 CO2 (Enzymatic) (21 - 32 mmol/L) 46 BUN (7 - 18 mg/dL) 12 Creatinine (0.6 - 1.3 mg/dL) 0.8 Est GFR ( Amer) (mL/min) >60 Est GFR (Non-Af Amer) (mL/min) >60 Glucose (70 - 110 mg/dL) 175 Plasma Calcium (8.5 - 10.1 mg/dL) 8.2 Hematology WBC (4.5 - 11.5 K/uL) 8.6 RBC (4.50 - 5.90 M/uL) 4.26 Hgb (13.5 - 17.5 gm/dL) 11.3 Hct (41.0 - 53.0 %) 35.9 MCV (80 - 100 fL) 84 MCH (26 - 34 pg) 27 RDW (11.6 - 14.8 %) 17.7 Neut % (Auto) (50 - 75 %) 87.1 Lymph % (Auto) (25 - 40 %) 6.3 [place] % (Auto) (3 - 14 %) 6.6 Eos % (Auto) (0 - 4 %) 0 Baso % (Auto) (0 - 2 %) 0 Plt Count, EDTA (150 - 400 K/uL) 175 PUBS MCHC (31 - 37 g/dL) 32 Assessment and Plan Problem List 1. COPD exacerbation Plan stablized now, decrease Solu medrol to 40mg bid, talked to forest technology professor the gram negative rods in blood culture actually are gram positive rods, along with gram positive cocci in other blood chance of contamination is high but will continue Rocephin for now 2. CHF (congestive heart failure) Status Chronic Onset Date Unknown Plan stable continue current meds 3. Anemia Status Acute Onset Date Unknown Plan stable, stool for occult blood negative, on iron 4. Mental status change Status Acute Onset Date Unknown Plan A&O x 3 now ready to be discharged to [facility] as soon as available
[2016-12-25 11:13] VITALS: BP 138/80
[2016-12-25 14:40] VITALS: BP 114/81
[2016-12-25 17:40] VITALS: BP 132/81
[2016-12-25 22:34] VITALS: BP 139/89
[2016-12-26 02:45] VITALS: BP 142/81
[2016-12-26 05:46] VITALS: BP 130/93
--- NOTE | 2016-12-26 07:26 | Progress Note ---
Subjective General breathing back to base line, not much cough but still has sputum, no fever no chills, no chest pain, mild back pain, Physical Exam Vital Signs / I&Os Vital Signs Date Time Temp Pulse Resp B/P Pulse O2 O2 Flow FiO2 Ox Delivery Rate 12/26 0546 98.4 106 20 130/93 90 Nasal 0.5 Cannula 12/26 0245 98.4 98 20 142/81 95 Nasal 0.5 Cannula 12/26 0145 1.0 12/25 2234 98.4 96 20 139/89 94 Nasal 1.0 Cannula 12/25 2142 Nasal 1.0 Cannula 12/25 1945 1.0 12/25 1900 100 05/ 1744 98.4 12/25 1740 100 24 132/81 89 Nasal 1.0 Cannula 12/25 1440 98.1 97 24 114/81 96 Nasal 1.0 Cannula 12/25 1113 98.2 103 22 138/80 97 Nasal 1.0 Cannula 12/25 0900 Nasal 1.0 Cannula I&O 12/26 0000 12/25 1600 12/25 0800 Intake Total 5282 557 0159 Output Total 394 264 2570 Balance 1262 -140 -222 General Appearance No acute distress Lungs decreased Breath sounds in bases, no wheezing Cardiovascular Regular rate and rhythm, Normal S1 and S2 Abdomen Normal bowel sounds, Soft, No tenderness Extremities No edema LAB Results Laboratory Tests 12/26 0400 Chemistry Plasma Sodium (136 - 145 mmol/L) 144 Plasma Potassium (3.5 - 5.1 mmol/L) 4.8 Plasma Chloride (98 - 107 mmol/L) 101 CO2 (Enzymatic) (21 - 32 mmol/L) 47 BUN (7 - 18 mg/dL) 14 Creatinine (0.6 - 1.3 mg/dL) 0.6 Est GFR ( Amer) (mL/min) >60 Est GFR (Non-Af Amer) (mL/min) >60 Glucose (70 - 110 mg/dL) 143 Plasma Calcium (8.5 - 10.1 mg/dL) 8.4 Hematology WBC (4.5 - 11.5 K/uL) 9.4 RBC (4.50 - 5.90 M/uL) 4.37 Hgb (13.5 - 17.5 gm/dL) 11.8 Hct (41.0 - 53.0 %) 37.2 MCV (80 - 100 fL) 85 MCH (26 - 34 pg) 27 RDW (11.6 - 14.8 %) 17.7 Neut % (Auto) (50 - 75 %) 86.0 Lymph % (Auto) (25 - 40 %) 6.6 [place] % (Auto) (3 - 14 %) 7.4 Eos % (Auto) (0 - 4 %) 0 Baso % (Auto) (0 - 2 %) 0 Plt Count, EDTA (150 - 400 K/uL) 200 PUBS MCHC (31 - 37 g/dL) 32 Assessment and Plan Problem List 1. COPD exacerbation Plan esolved, waiting for facility placement, 2. CHF (congestive heart failure) Status Chronic Onset Date Unknown Plan controlled stable, continue current meds 3. Hypertension Status Chronic Onset Date Unknown Plan controlled continue current meds 4. Mental status change Status Acute Onset Date Unknown Plan resolved
--- NOTE | 2016-12-26 07:26 | Progress Note ---
Subjective General breathing back to base line, not much cough but still has sputum, no fever no chills, no chest pain, mild back pain, Physical Exam Vital Signs / I&Os Vital Signs Date Time Temp Pulse Resp B/P Pulse O2 O2 Flow FiO2 Ox Delivery Rate 12/26 0546 98.4 106 20 130/93 90 Nasal 0.5 Cannula 12/26 0245 98.4 98 20 142/81 95 Nasal 0.5 Cannula 12/26 0145 1.0 12/25 2234 98.4 96 20 139/89 94 Nasal 1.0 Cannula 12/25 2142 Nasal 1.0 Cannula 12/25 1945 1.0 12/25 1900 100 05/ 1744 98.4 12/25 1740 100 24 132/81 89 Nasal 1.0 Cannula 12/25 1440 98.1 97 24 114/81 96 Nasal 1.0 Cannula 12/25 1113 98.2 103 22 138/80 97 Nasal 1.0 Cannula 12/25 0900 Nasal 1.0 Cannula I&O 12/26 0000 12/25 1600 12/25 0800 Intake Total 3597 021 2356 Output Total 512 804 5479 Balance 1262 -140 -222 General Appearance No acute distress Lungs decreased Breath sounds in bases, no wheezing Cardiovascular Regular rate and rhythm, Normal S1 and S2 Abdomen Normal bowel sounds, Soft, No tenderness Extremities No edema LAB Results Laboratory Tests 12/26 0400 Chemistry Plasma Sodium (136 - 145 mmol/L) 144 Plasma Potassium (3.5 - 5.1 mmol/L) 4.8 Plasma Chloride (98 - 107 mmol/L) 101 CO2 (Enzymatic) (21 - 32 mmol/L) 47 BUN (7 - 18 mg/dL) 14 Creatinine (0.6 - 1.3 mg/dL) 0.6 Est GFR ( Amer) (mL/min) >60 Est GFR (Non-Af Amer) (mL/min) >60 Glucose (70 - 110 mg/dL) 143 Plasma Calcium (8.5 - 10.1 mg/dL) 8.4 Hematology WBC (4.5 - 11.5 K/uL) 9.4 RBC (4.50 - 5.90 M/uL) 4.37 Hgb (13.5 - 17.5 gm/dL) 11.8 Hct (41.0 - 53.0 %) 37.2 MCV (80 - 100 fL) 85 MCH (26 - 34 pg) 27 RDW (11.6 - 14.8 %) 17.7 Neut % (Auto) (50 - 75 %) 86.0 Lymph % (Auto) (25 - 40 %) 6.6 [place] % (Auto) (3 - 14 %) 7.4 Eos % (Auto) (0 - 4 %) 0 Baso % (Auto) (0 - 2 %) 0 Plt Count, EDTA (150 - 400 K/uL) 200 PUBS MCHC (31 - 37 g/dL) 32 Assessment and Plan Problem List 1. COPD exacerbation Plan esolved, waiting for facility placement, 2. CHF (congestive heart failure) Status Chronic Onset Date Unknown Plan controlled stable, continue current meds 3. Hypertension Status Chronic Onset Date Unknown Plan controlled continue current meds 4. Mental status change Status Acute Onset Date Unknown Plan resolved
[2016-12-26 10:42] VITALS: BP 151/91
[2016-12-26 14:41] VITALS: BP 148/93
[2016-12-26 18:00] VITALS: BP 132/89
[2016-12-26 22:24] VITALS: BP 145/86
[2016-12-27 02:44] VITALS: BP 121/76
[2016-12-27 06:45] VITALS: BP 150/82
[2016-12-27] MEDS ORDERED: PREDNISONE20 MG PO ×2 (07:35)
--- NOTE | 2016-12-27 08:17 | DISCHARGE SUMMARY ---
ADMIT DATE: 12/23/2016 DISCHARGE DATE: 12/27/2016 DISCHARGE DIAGNOSES: 1. Exacerbation of chronic obstructive pulmonary disease. 2. Congestive heart failure. 3. Hypertension. 4. Change in mental status, which has resolved BRIEF HISTORY: This is a 71-year-old white male who was admitted on 12/23/2016. The patient presented to the ED complaining of shortness of breath and fall, weakness, but no injury. Evaluation in the emergency showed that the patient has an exacerbation of COPD. The patient was weak and unable to stand. He fell the day before the admission and was unable to get up, but no history of loss of consciousness. HOSPITAL COURSE: The patient was started on DuoNeb and Solu-Medrol and oxygen supplement, which patient was at home. Blood culture was sent in the emergency department and the next day, the patient had a gram-positive cocci in one of the blood cultures. As a precaution, the patient was started on Rocephin because of COPD and the next blood test first showed gram-negative but then it determined that this was a mistake and this was gram-positive rods, which is to steroids, which increased the chance of contamination, but the patient continued on Rocephin and patient improved during the hospital course, doing fine now. The patient is back to his baseline breathing. Alert and oriented and denies any cough or fever or chills, or phlegm or chest pain. The patient had a few episodes of short-lasting few seconds of SVT, but is back to a normal rhythm now. PHYSICAL EXAMINATION: VITAL SIGNS: Temperature is 98.2, pulse rate is 107, respirations 21, blood pressure 150/82, and oxygen is 97% on 1.5 L of oxygen. LUNGS: Decreased air exchange all over the lungs. HEART: Regular S1 and S2. No murmur. No S3 was heard. ABDOMEN: Soft, nontender. Bowel sounds are positive. EXTREMITIES: No edema. LAB/IMAGING: White blood count is 9.4, hemoglobin 11.8, hematocrit 37.2, and platelet count 200. Sodium is 144, potassium is 4.8, chloride is 101, CO2 is 47, BUN is 14, creatinine 0.6, glucose 143. Calcium is 8.4. DISCHARGE INSTRUCTIONS/MEDICATIONS: The patient is being able to discharge to a fdc today, which is going to be [facility] and will follow up with his primary care physician. Discharge medications will be: 1. Aspirin 81 mg daily. 2. Advair 250/50, 1 inhaled twice a day. 3. Lasix 20 mg daily. 4. Lisinopril 5 mg daily. 5. Lopressor 25 mg twice a day. 6. OxyContin 10 mg every 12 hours. 7. Potassium 10 mEq daily. 8. Lasix 20 mg daily. 9. MiraLax 17 g in 8 ounce water daily. 10. Xarelto 50 mg twice a day. The patient has a history of deep vein thrombosis. 11. The patient will follow up with his primary care physician in the [facility].
[2016-12-27] MEDS ORDERED: OXAYDO5 MG PO ×2 (10:08)
== END 2016-12-27 10:40 | DRG 189 ==
LOC: ED SRH 11:01 → TRANS SRH 15:41 → CC SRH 18:00
PROVIDERS: ADMIT Emergency Medicine
PROC: 0T9B70Z Drainage of Bladder with Drainage Device, Via Natural or Artificial Opening (ICD-10-PCS; principal; 2016-12-23)
PROC: 06HN33Z Insertion of Infusion Device into Left Femoral Vein, Percutaneous Approach (ICD-10-PCS; principal; 2016-12-23)
DX: J96.21 Acute and chronic respiratory failure with hypoxia (principal); J44.1 Chronic obstructive pulmonary disease with (acute) exacerbation; I50.22 Chronic systolic (congestive) heart failure; I11.0 Hypertensive heart disease with heart failure; F17.210 Nicotine dependence, cigarettes, uncomplicated; R53.1 Weakness; S00.81XA Abrasion of other part of head, initial encounter; W18.30XA Fall on same level, unspecified, initial encounter; Y99.8 Other external cause status; D64.9 Anemia, unspecified; Z86.718 Personal history of other venous thrombosis and embolism; Z79.01 Long term (current) use of anticoagulants
CPT/HCPCS: 83741; 85241; 90004; 90047; 90065; 90074; 90100; 90616; 91295; 91320; 91504; 91505; 91672; 92031; 92132; 92235; 92530; 92610; 92668; 92670; 92755; 93140; 94001; 94060; 95059; 95061

== ENCOUNTER 2016-12-27 15:53 | Emergency (ER) | payer OTHER ==
--- NOTE | 2016-12-27 16:59 | DIAGNOSTIC IMAGING REPORT ---
PROCEDURE: XR CHEST 1 VIEW INDICATION: SHORTNESS OF BREATH TECHNIQUE: Single view chest. 1639 hours COMPARISON: 12/23/2016 FINDINGS: An endotracheal tube is in place the tip 1 cm above the garret. Left heart border is obscured. Central vasculature is slightly congested. There are coarse interstitial markings and Richard B lines. There is a moderate left pleural effusion with retrocardiac opacity. The right lung is clear. Osseous structures are grossly intact. IMPRESSION: 1. Endotracheal tube in satisfactory position. 2. Interval development of moderate size left effusion, probably secondary to mild CHF.
--- NOTE | 2016-12-27 17:48 | ED NURSING NOTES ---
Clinical Report - Nurses [facility] [address] [place] [address] 12/27/2016 15:54 [id number] Triage time 15:50. Acuity: LEVEL 2. Chief Complaint: SHORTNESS OF BREATH. 16:14 12/27/16. Alert. No acute distress. SEPSIS SCREEN: Sepsis Screen. Negative (no infection suspected/documented). JOVANNI COMA SCORE: [place] Coma Scale: 15- eyes open spontaneously (4); best verbal response- oriented x 4 (5); best motor response- obeys commands (6). --16:14 Gloria Carlson R.N. 15:59 12/27/16. BP: 155/103. HR: 106. RR: 28. O2 saturation: 84%. Temp: 97.7 F. Pain level now: 7/10. Additional comments: O2 sat on C-PAP mask. --16:14 Gloria Carlson R.N. Weight: 80.9 kg. Height/Length: 68 inches. BMI: 27.1. --16:12 Gloria Carlson R.N. Medications Lasix Oral (Tablet 20 mg) 1 tablet, daily. Lisinopril Oral 25mg, daily. Metoprolol Tartrate Oral 25 mg, BID. --16:04 Gloria Carlson R.N. Advair Diskus Inhalation. Calcium. OxyCODONE HCl Oral. Polyethylene Glycol External. Potassium Chloride Oral. Tylenol 8 Hour Oral. ZyPREXA Oral. --16:04 Gloria Carlson R.N. CefTRIAXone Sodium Intravenous (Solution Reconstituted 2 gm) 50 mL. --16:49 Gloria Carlson R.N. Iron Oral. --16:49 Gloria Carlson R.N. Nicotine Transdermal 7 mg/24hr. --16:51 Gloria Carlson R.N. Nitroglycerin Transdermal (Ointment 2 %) 1 inch, 4x a day. --16:51 Aldo, Gloria, R.N. Protonix Oral (Tablet Delayed Release 40 mg) 1 tablet, daily. --16:51 Gloria Carlson R.N. PredniSONE Oral (Tablet 20 mg) 1 tablet, 2x a day. --16:51 Gloria Carlson R.N. Xarelto Oral (Tablet 15 mg) 1 tablet, BID. --16:51 Gloria Carlson R.N. 1/2 Normal Saline 75mg, per hour. --16:52 Gloria Carlson R.N. Tylenol Oral (Tablet 325 mg) 1 tablet, PRN. --16:52 Gloria Carlson R.N. The following entry was struck and corrected by Gloria Carlson R.N., 17:19 (12/27/16) Reason for correction - other(correction). [facility] Met[facility] Tartrate [facility]. --16:04 Gloria Carlson R.N. --END STRIKE>> The following entry was struck and corrected by Gloria Carlson R.N., 17:19 (12/27/16) Reason for correction - other(correction). [facility] Lisinopril Oral. --16:04 Gloria Carlson R.N. --END STRIKE>> The following entry was struck and corrected by Gloria Carlson R.N., 17:18 (12/27/16) Reason for correction - other(correction). [facility] Lasix Oral. --16:04 Gloria Carlson R.N. --END STRIKE>>. Allergies No Known Drug Allergy. --16:04 Gloria Carlson R.N. History Arrived by EMS. This started today. He has had wheezing. Treatment TEAR DOWN MATCHER: (albuterol nebulizer). EMS treatment TEAR DOWN MATCHER verbally communicated. Pulse oximeter applied. Pre-hospital 12-lead EKG. IV fluid given. PAST MEDICAL HX: Hypertension. Congestive heart failure. Chronic obstructive pulmonary disease. Immunizations: up-to-date. SOCIAL HX: Smoker- current status unknown. NUTRITIONAL RISK ASSESSMENT: The nutritional risk assessment revealed no deficiencies. FUNCTIONAL ASSESSMENT: Functional assessment: no impairments noted. LEARNING NEEDS ASSESSMENT: The learning needs assessment revealed no barriers. FALL RISK ASSESSMENT: Fall risk assessment completed. Risk factors identified include patient age greater than 65 years and history of fall. Fall interventions initiated. Side rails up x2. Brakes on Bed in low position. Patient visible from nurses' station and identified as a fall risk by ID band. Call light in reach of patient. Instructed not to get up without assistance. SKIN INTEGRITY ASSESSMENT: Skin integrity risk assessment completed. No skin integrity risk identified. --16:14 Gloria Carlson R.N. Interventions ID band on patient. To treatment room. --16:14 Gloria Carlson R.N. 15:54 12/27/2016 Site #1 started prior to arrival by EMS via IV in the left antecubital space with an 20g angiocath. --16:04 Gloria Carlson R.N. NURSING PROGRESS NOTES 16:00 12/27/2016 Site #2 started via IV in the right hand with an 20g angiocath, with aseptic technique and good blood return; one attempt. Blood drawn: rainbow set. Labeled in the presence of the patient and sent to the lab. Saline lock flushed with 10 mL saline. --16:37 August Clark R.N. 14 fr welch catheter placed. Reason for indwelling catheter: critical need to monitor intake and output and requires prolonged immobilization. During procedure hand hygiene observed and sterile equipment and aseptic technique used. Return of 100 mL yellow-colored clear urine; attached to bedside drainage bag positioned below the bladder and secured with tape and velcro. He tolerated procedure well (placed by KAILASH Martin). --16:37 Gloria Carlson R.N. Patient ID band checked for patient name and birthdate. Instructions provided to collect clean catch urine and patient verbalized understanding. Catheterized urine collected with return of yellow-colored clear urine; sample sent to lab for urinalysis. Specimen labeled in the presence of the patient. --16:38 Gloria Carlson R.N. 16:17 12/27/2016 Zofran (Ondansetron HCl) IVP 4 mg given over 1 minute(s) via site #1. Allergies verified and confirmed 5 rights. IV patency established. IV site checked: no pain, redness, or swelling. IV flushed thoroughly pre- and post-medication administration. IVP given by RN. --16:40 August Clark R.N. 16:18 12/27/2016 Dilaudid (HYDROmorphone HCl PF) IVP 0.5 mg given over 1 minute(s) via site #1. Allergies verified, confirmed 5 rights and sedative warning given to the patient. IV patency established. IV site checked: no pain, redness, or swelling. IV flushed thoroughly pre- and post-medication administration. IVP given by RN. --16:41 August Clark R.N. 16:20 12/27/2016 Versed (Midazolam HCl) IVP 2.5 mg given over 1 minute(s) via site #1. Allergies verified, confirmed 5 rights and sedative warning given to the patient. IV patency established. IV site checked: no pain, redness, or swelling. IV flushed thoroughly pre- and post-medication administration. IVP given by RN. --16:44 August Clark R.N. 16:21 12/27/2016 Succinylcholine IVP 70 mg given over 1 minute(s) via site #1. Allergies verified and confirmed 5 rights. IV patency established. IV site checked: no pain, redness, or swelling. IV flushed thoroughly pre- and post-medication administration. IVP given by RN. --17:26 August Clark R.N. 16:22 12/27/2016 Succinylcholine IVP 40 mg given over 1 minute(s) via site #1. Allergies verified and confirmed 5 rights. IV patency established. IV site checked: no pain, redness, or swelling. IV flushed thoroughly pre- and post-medication administration. IVP given by RN. --17:28 August Clark R.N. 16:30 12/27/2016 Started 50 mg of Propofol Drip IV in bag #1 100 mL; bolus of 100 mg over 30 second(s) then at 50 mcg/kg/min over 2 hour(s) via site #1 via IV pump. Allergies verified and confirmed 5 rights. IV patency established. IV site checked: no pain, redness, or swelling. IV flushed thoroughly pre- and post-medication administration. Completed per protocol (Propofol bolus given by ED physician. Drip titrated between 5 and 55 mcg/kg/min for effect.). --17:24 Gloria Carlson R.N. EKG time: (1610). EKG was ordered, performed by a tech and shown to the ED physician. --17:46 Masoud, Arlette NG tube inserted. (unsuccessful NG tube attempt). --17:56 Gloria Carlson R.N. 15:55 12/27/2016 Started bag #1 1000 mL IV Fluids IV NS (Saline); bolus of 1000 mL over 30 minute(s) via site #1. Allergies verified and confirmed 5 rights. IV patency established. IV site checked: no pain, redness, or swelling. IV flushed thoroughly pre- and post-medication administration. --18:01 August Clark R.N. 16:15 12/27/2016 Started bag #2 1000 mL IV Fluids IV NS (Saline); bolus of 1000 mL over 1 hour(s) via site #2. Allergies verified and confirmed 5 rights. IV patency established. IV site checked: no pain, redness, or swelling. IV flushed thoroughly pre- and post-medication administration. --18:04 August Clrak R.N. 17:00 12/27/2016 IV Fluids IV NS Bag Change: bag #1 completed. Total amount infused: 1000. STARTED bag #3 (1000 mL) at 1000 mL/hr. Confirmed 5 rights. IV patency established. IV site checked: no pain, redness, or swelling. IV flushed thoroughly. --18:03 August Clark R.N. 17:35 12/27/2016 IV Fluids IV NS Bag Change: bag #3 completed. Total amount infused: 1000. STARTED bag #4 at 1000 mL/hr. Confirmed 5 rights. IV patency established. IV site checked: no pain, redness, or swelling. IV flushed thoroughly. --18:05 August Clark R.N. 16:23. ( 8F ET tube placed by ED physician.). --18:13 Gloria Carlson R.N. 16:38. ( Chest x-ray completed). --18:14 Gloria Carlson R.N. <<STRICKEN ENTRY-- Patient transported to CT by stretcher with O2, monitor, nurse and tech. (transported with RT as well.). --18:15 Gloria Carlson R.N. --END STRIKE>> Correction --18:17 Gloria Carlson R.N. 17:35. Patient transported to CT by stretcher with O2, monitor, nurse and tech. (transported with RT as well.). --18:17 Gloria Carlson R.N. 17:45. Patient returned from CT by stretcher with O2, monitor, nurse and tech. --18:16 Gloria Carlson R.N. 18:07 12/27/2016 SOLU-MEDROL (MethylPREDNISolone Sodium Succ) IVP 125 mg given over 2 minute(s) via site #2. Allergies verified and confirmed 5 rights. IV patency established. IV site checked: no pain, redness, or swelling. IV flushed thoroughly pre- and post-medication administration. IVP given by RN. --18:17 Gloria Carlson R.N. 18:30 12/27/2016 PRECEDEX (Dexmedetomidine HCl) IVP 0.2 mcg given over 4 hour(s) via site #1. Allergies verified and confirmed 5 rights. IV patency established. IV site checked: no pain, redness, or swelling. IV flushed thoroughly pre- and post-medication administration. IVP given by RN (via Pump). --19:00 August lCark R.N. 18:50 12/27/2016 PRECEDEX IVP Response: no adverse reaction. ED physician notified (Stopped, pto not sedated.). --19:01 August Clark R.N. 18:56 12/27/16. ( Oral NGT placed, #18 at 70 cm, confirmed placement with air auscultation, secured to ETT for now.). --18:56 Esther Gale R.N. 19:22 12/27/2016 Started 40 mg of Vecuronium Drip IV in bag #1 100 mL; at 1 mcg/kg/min over 12 hour(s) via site #2 via IV pump. Allergies verified and confirmed 5 rights. IV patency established. IV site checked: no pain, redness, or swelling. IV flushed thoroughly pre- and post-medication administration. --19:22 Juanpablo Bah <<STRICKEN ENTRY-- 19:29 12/27/2016 Started 10 mg of Propofol Drip IV; at 35 mcg/kg/min over 3 hour(s) via site #1 via IV pump. Allergies verified and confirmed 5 rights. IV patency established. IV site checked: no pain, redness, or swelling. IV flushed thoroughly pre- and post-medication administration. --19:34 Juanpablo Bah --END STRIKE>> Correction. --19:37 Juanpablo Bah 19:29 12/27/2016 Started 1000 mg of Propofol Drip IV in bag #1 100 mL; at 35 mcg/kg/min over 3 hour(s) via site #1 via IV pump. Allergies verified and confirmed 5 rights. IV patency established. IV site checked: no pain, redness, or swelling. IV flushed thoroughly pre- and post-medication administration. --19:37 Juanpablo Bah 19:12/27/2016 IV Fluids IV NS Discontinued: bag #1 completed. Total amount infused: 1000 mL. IV patency established. IV site checked: no pain, redness, or swelling. IV flushed thoroughly. --19:29 Juanpablo Bah 19:38 12/27/2016 Started 1000 mg of Propofol Drip IV in bag #1 100 mL; at 30 mcg/kg/min over 3.4 hour(s) via site #1 via IV pump. Allergies verified and confirmed 5 rights. IV patency established. IV site checked: no pain, redness, or swelling. IV flushed thoroughly pre- and post-medication administration. --19:39 Jennifer Bah. monitoring coordinator, pulse oximeter and NIBP monitor placed on patient; monitor alarms on. Head of bed elevated 30 degrees. Patient identifiers checked. Call light placed in reach. Side rails up x 2. Bed placed in lowest position. Brakes of bed on. --19:44 Juanpablo Bah 19:45 12/27/16. BP: 117/72. HR: 72. RR: 16. O2 saturation: 97%. Temp: deferred. Pain level now: 0/10. --19:46 Juanpablo Bah 20:20 12/27/2016 IV Saline Lock Drip IV Continued: upon transfer at the rate of 50 mL/hr. IV patency established. IV site checked: no pain, redness, or swelling. IV flushed thoroughly. --20:30 Juanpablo Bah 20:21 12/27/2016 Propofol Drip IV Continued: upon transfer at the rate of 30 mcg/kg/min bag #1. IV patency established. IV site checked: no pain, redness, or swelling. IV flushed thoroughly. --20:31 Juanpablo Bah 20:21 12/27/2016 IV Fluids IV NS Continued: at the rate of 50 mL/hr. 300 mL remaining bag #3. IV patency established. IV site checked: no pain, redness, or swelling. IV flushed thoroughly. --20:31 Juanpablo Bah 20:22 12/27/2016 Vecuronium Drip IV Continued: upon transfer at the rate of 1 mcg/kg/min. 90 mL remaining bag #1. IV patency established. IV site checked: no pain, redness, or swelling. IV flushed thoroughly. --20:32 Juanpablo Bah Intake & Output Urine: 500 mL, with return of yellow-colored clear urine; attached to bedside drainage bag. --19:43 Juanpablo Bah DISPOSITION / DISCHARGE Transferred to [facility]. Summary of care provided to EMS. Transported via ambulance by nurse and EMS with monitor, IV and ventilator. Report was given to a nurse and an EMT/P at the bedside. Report included patient's care, treatment, medications, reviewed medication reconcilliation, and condition (including any recent changes or anticipated changes). All questions were answered. Report was acknowledged and care was transferred. Patient's personal items; items were placed in belongings bag and transported with the patient. --19:59 Juanpablo Bah 19:59 12/27/16. BP: 115/68. HR: 71. RR: 16. O2 saturation: 97% on ventilator. O2 started via ventilator. Temp: 97.5 F. --19:59 Juanpablo Bah Report was given to a nurse via a phone call. Report included patient's care, treatment, medications, reviewed medication reconcilliation, and condition (including any recent changes or anticipated changes). All questions were answered. Report was acknowledged and care was transferred. (Stephon LINDER at [facility]). --20:11 Juanpablo Bah Departure time: :20. --20:29 Juanpablo Bah Locked/Released at 12/27/2016 20:32 by Juanpablo Bah
--- NOTE | 2016-12-27 17:48 | ED ORDER SUMMARY ---
..... Patient: STIVEN JUAN OrderSheet [facility] VisitID: [id number] [place] [address] 71y, M Registration Date/Time: 12/27/2016 ORDER SHEET Weight: 80.9 kg Allergies: No Known Drug Allergy GENERAL ORDERS: Chest 1V Urgent (15:59 12/27/2016 Karolina YOUNG) (Ack 16:18 Damari) (16:37 JSimbeck R.N.) Vibrator Equipment Tester (Continuous) (15:59 12/27/2016 Karolina YOUNG) (16:15 RMarsden R.N.) CBC w Diff Urgent (16:00 12/27/2016 Karolina YOUNG) (16:15 RMarsden R.N.) CMP Urgent (16:00 12/27/2016 Karolina YOUNG) (16:15 RMarsden R.N.) UA-Culture if indicated Urgent (16:00 12/27/2016 Karolina YOUNG) (Ack 16:18 Damari) (16:36 RMarsden R.N.) PT with INR Urgent (16:00 12/27/2016 Karolina YOUNG) (16:15 RMarsden R.N.) PTT Urgent (16:00 12/27/2016 Karolina YOUNG) (16:15 RMarsden R.N.) Amylase Urgent (16:00 12/27/2016 Karolina YOUNG) (16:15 RMarsden R.N.) Lipase Urgent (16:00 12/27/2016 Karolina YOUNG) (16:15 RMarsden R.N.) Troponin-I Urgent (16:00 12/27/2016 Karolina YOUNG) (16:15 RMrosalindaden R.N.) CPK Urgent (16:00 12/27/2016 Karolina YOUNG) (16:15 RMarsden R.N.) BNP Urgent (16:00 12/27/2016 Karolina YOUNG) (16:15 RMarsden R.N.) ABG (G) Urgent (16:00 12/27/2016 Karolina YOUNG) (16:15 RMarsden R.N.) Pulse oximeter (16:00 12/27/2016 Karolina YOUNG) (16:15 RMsandeep R.N.) EKG - ER Stat (16:00 12/27/2016 Karolina YOUNG) (16:14 Cristel) Oxygen (2 L/min) (NC) (16:00 12/27/2016 Karolina YOUNG) (16:15 RMrosalindaden R.N.) RT Evaluation Stat (16:00 12/27/2016 Karolina YOUNG) (16:15 Mihir R.N.) Lactate, Serum Urgent (16:32 12/27/2016 Karolina YOUNG) (16:36 RMros[address]indaden R.N.) CT Head wo Cont Urgent (17:15 12/27/2016 Karolina YOUNG) (Ack 17:26 Cristel) (18:13 JSimbeck R.N.) ABG (G) Urgent (18:01 12/27/2016 Karolina YOUNG) (Ack 18:12 Damari) (18:13 JSimbeck R.N.) NG Tube (18:55 12/27/2016 LSullivan R.N. per protocol) (18:55 LSullivan R.N.) MEDICATION ORDERS: Precedex IV : Bolus none, then 0.2 mcg/kg/hr (NOW); Urgent (titrate to sedation: max dose 0.7 mcg/kg/hr) (18:08 12/27/2016 Karolina YOUNG) (19:00 JSlorenzaeck R.N.) IV FLUIDS: IV Saline Lock (16:00 12/27/2016 Karolina YOUNG) (16:37 JSimbeck R.N.) Propofol Drip IV : initial bolus 100 mg , then 0.1 mg/kg/min (NOW); Urgent (16:28 12/27/2016 Karolina YOUNG) (Ack 16:37 JSimbeck R.N.) (17:24 RMsandeep R.N.) Zofran IV 4 mg (NOW) (16:39 12/27/2016 Michael R.N. verbal order read back to Karolina YOUNG) (16:40 Michael R.N.) Dilaudid IV 0.5 mg (NOW) (16:41 12/27/2016 Michael R.N. verbal order read back to Karolina YOUNG) (16:41 Micahel R.N.) Versed IV 2.5mg (NOW) (16:42 12/27/2016 Antoineeck R.N. verbal order read back to Karolina YOUNG) (16:44 Michael R.N.) Vecuronium Drip IV : initial bolus none, then 1 mcg/kg/min (HIGH ALERT MEDICATION, NOW, TITRATE) (17:18 12/27/2016 Karolina YOUNG) (Cancelled: Other18:13 Antoineeck R.N.) Succinylcholine IV 70mg (NOW) (17:24 12/27/2016 Antoineeck R.N. verbal order read back to Karolina YOUNG) (17:26 Michael R.N.) Succinylcholine IV 40mg (NOW) (17:26 12/27/2016 Michael R.N. verbal order read back to Karolina YOUNG) (17:28 Michael R.N.) IV NS with Normal Saline 1 Liter: initial bolus 1000 mL (1000 mL/hr), then none - for X1 (NOW); Urgent (17:57 12/27/2016 Michael R.N. verbal order read back to Karolina YOUNG) (18:01 Michael R.N.) Solu-MEDROL IV 125 mg (NOW) (18:03 12/27/2016 Mihir R.N. verbal order read back to Karolina YOUNG) (18:17 Mihir R.N.) Vecuronium Drip IV : initial bolus none, then 1 mcg/kg/min (NOW); Urgent (18:51 12/27/2016 Michael R.N. verbal order read back to Karolina YOUNG) (19:22 Matthew R.N.) ORDER SHEET NOTES: [Electronically signed by Sergio Bernal MD (20:31 12/27/2016)] [Electronically signed by Megan Garcia R.N. (20:32 12/27/2016)] [Electronically locked/signed by Megan Garcia R.N. (20:32 12/27/2016)]
--- NOTE | 2016-12-27 17:48 | ED CLINICAL REPORT ---
Clinical Report - Physicians/Mid Levels [facility] [address] [place] [address] 12/27/2016 15:54 Patient: STIVEN JUAN Time Seen: 15:59. Arrived- By ambulance. Historian- EMS personnel (The patient's grandson who has power of trademark attorney and provided some history). History limited by patient's respiratory distress. Physical Exam limited by patient's respiratory distress. HISTORY OF PRESENT ILLNESS Chief Complaint: DYSPNEA. This started today and is still present. It was abrupt in onset. The dyspnea is severe. The patient has had dyspnea on exertion. Similar symptoms previously: REVIEW OF SYSTEMS Unobtainable. All systems otherwise negative, except as recorded above. PAST HISTORY Problems: Changed Mental Status. Head Injury. Abrasion(s). Fall. Abnormal Test. DVT - Deep Venous Thrombosis. Hypoxia. Respiratory Failure. Acidosis. Contusion. Lung Disease. Pneumonia. Congestive Heart Failure. COPD - Chronic Obstructive Pulmonary Disease. Hypertension. Additional Surgeries: Knee Surgery. Neck Surgery. Medications: Tylenol Oral (Tablet 325 mg) 1 tablet, PRN. 1/2 Normal Saline 75mg, per hour. Xarelto Oral (Tablet 15 mg) 1 tablet, BID. PredniSONE Oral (Tablet 20 mg) 1 tablet, 2x a day. Protonix Oral (Tablet Delayed Release 40 mg) 1 tablet, daily. Nitroglycerin Transdermal (Ointment 2 %) 1 inch, 4x a day. Nicotine Transdermal 7 mg/24hr. Iron Oral. CefTRIAXone Sodium Intravenous (Solution Reconstituted 2 gm) 50 mL. Advair Diskus Inhalation. Calcium. OxyCODONE HCl Oral. Polyethylene Glycol External. Potassium Chloride Oral. Tylenol 8 Hour Oral. ZyPREXA Oral. Lasix Oral (Tablet 20 mg) 1 tablet, daily. Lisinopril Oral 25mg, daily. Metoprolol Tartrate Oral 25 mg, BID. Allergies: No Known Drug Allergy. SOCIAL HISTORY Current every day smoker (cigarette). FAMILY HISTORY Unable to obtain family medical history due to patient's unresponsiveness and distress. ADDITIONAL NOTES The nursing notes have been reviewed. PHYSICAL EXAM Vital Signs: Have been reviewed. Appearance: Lethargic. Eyes: Pupils equal, round and reactive to light. ENT: Pharynx normal. Neck: Normal inspection. No jugular venous distention. CVS: Tachycardia. Respiratory: Respiratory distress. Fatigue. Retractions. Accessory muscle use. Prolonged expirations. Decreased air movement. Abdomen: Soft and nontender. No organomegaly. Back: Normal inspection. Skin: Skin warm and dry. Extremities: Extremities exhibit normal ROM. No calf tenderness. No lower extremity edema. LABS, X-RAYS, AND EKG EKG: Rate: 106. Non-specific ST segment / T wave abnormalities. pulmonary disease pattern. EKG unchanged when compared with prior EKG. (23 Dec 2016). Chest X-ray: Vascular congestion present. Cardiomegaly. Medium left pleural effusion present. (ET tube in good position). The X-rays were independently viewed by me. CT Head: (PROCEDURE: CT HEAD WITHOUT CONTRAST INDICATION: MENTAL STATUS CHANGE TECHNIQUE: Axial CT images were acquired through the head. Coronal and sagittal reformations were created. COMPARISON: 12/23/2016 FINDINGS: Mild cerebral cortical atrophy. Mild to moderate hypodensity in the periventricular and subcortical white matter. No focal cortical defects. No intracranial hemorrhage or extraaxial fluid collections. Ventricles are normal in size, shape and position. There is no mass, mass effect or midline shift. The tineo-white matter differentiation is normal. There is no edema. Moderate calcific atherosclerosis of the intracranial internal carotid arteries. The calvarium is intact. The paranasal sinuses and mastoid air cells are normally aerated. The extracranial soft tissues and orbits are normal. There is hardware in the C1 and C2 cervical spine. Endotracheal tube is in place. IMPRESSION: 1. No CT evidence of acute intracranial process. 2. Stable age related involutional and white matter changes.). The study was interpreted by the radiologist and contemporaneously by me. Laboratory Tests: UA-Culture if indicated: (ANDREIA: 12/27/2016 16:30) ( MsgRcvd 12/27/2016 17:24) Final results Test Result Flag Units (Reference) URINE COLOR YELLOW URINE APPEARANCE CLEAR URINE GLUCOSE NEGATIVE (NEGATIVE) URINE BILIRUBIN NEGATIVE (NEGATIVE) URINE KETONE NEGATIVE (NEGATIVE) URINE SPECIFIC GRAVITY 1.025 (1.010-1.030) URINE PH 5.5 (5.0-8.0) URINE PROTEIN TRACE (NEGATIVE) URINE UROBILINOGEN 0.2 EU/dL (0.2-1.0) URINE NITRITE NEGATIVE (NEGATIVE) URINE BLOOD 3+ (NEGATIVE) URINE LEUK ESTERASE NEGATIVE (NEGATIVE) URINE RBC 10-25 rbc/hpf (0-1) URINE WBC 1-3 wbc/hpf (0-1) URINE EPITHELIAL CELLS 0-1 EPI/hpf (0-5) URINE BACTERIA NONE SEEN (NONE SEEN) URINE COMMENT CULT NOT INDICATED 2+ HYANLINE CASTSURINE CULTURES ARE SET-UP BASED ON THE FOLLOWING CRITERIA:POSITIVE NITRITEPOSITIVE LEUKOCYTE ESTERASEGREATER THAN 10 WHITE BLOOD CELLSMODERATE (2+) OR GREATER BACTERIA CBC w Diff: (ANDREIA: 12/27/2016 16:17) ( MsgRcvd 12/27/2016 16:33) Final results Test Result Flag Units (Reference) WHITE BLOOD COUNT 10.5 K/uL (4.5-11.5) RED BLOOD COUNT 4.51 M/uL (4.50-5.90) HEMOGLOBIN 12.3 L gm/dL (13.5-17.5) HEMATOCRIT 39.1 L % (41.0-53.0) MEAN CELL VOLUME 87 fL (80-100) MEAN CORPUSCULAR HGB 27 pg (26-34) MEAN CORPUSCULAR HGB CONC 32 g/dL (31-37) RED CELL DISTRIBUTION WIDTH 17.3 H % (11.6-14.8) PLATELET COUNT 221 K/uL (150-400) NEUTROPHIL % 88.3 H % (50-75) LYMPH % 5.5 L % (25-40) MONO % 6.2 % (3-14) EOSINOPHIL % 0 % (0-4) BASOPHIL % 0 % (0-2) PT with INR: (ANDREIA: 12/27/2016 16:17) ( MsgRcvd 12/27/2016 16:41) Final results Test Result Flag Units (Reference) INR 1.7 H (0.8-1.2) Low Intensity Therapy: INR 1.5-2.0 PT range 18.5-23.1Mod.Intensity Therapy: INR 2.0-3.0 PT range 23.1-31.5High Intensity Therapy: INR 2.5-3.5 PT range 27.4-35.5High Intensity Therapy 2: INR 3.0-4.0 PT range 31.5-39.3 APTT 30 SECONDS (24-34) Lactate, Serum: (ANDREIA: 12/27/2016 16:14) ( [facility] 12/27/2016 17:57) Final results Test Result Flag Units (Reference) LACTIC ACID 1.3 mmol/L (0.4-2.0) BNP: (ANDREIA: 12/27/2016 16:17) ( [facility] 12/27/2016 17:06) Final results Test Result Flag Units (Reference) B-TYPE NATRIURETIC PEPTIDE 532 H pg/ml (5-100) CMP: (ANDREIA: 12/27/2016 16:17) ( DegRcvd 12/27/2016 16:57) Final results Test Result Flag Units (Reference) GLUCOSE 165 H mg/dL (70-110) BUN 13 mg/dL (7-18) CREATININE 0.7 mg/dL (0.6-1.3) Estimated GFR >60 mL/min Estimated GFR- >60 mL/min Note: Persistent reduction over 3 months in eGFR<60 mL/min/1.73 m2 defines CKD. Patients with eGFR values>=60 mL/min/1.73 m2 may also have CKD if evidence ofpersistent proteinuria. Additional information may be foundat www.kidney.org. SODIUM 145 mmol/L (136-145) POTASSIUM 4.8 mmol/L (3.5-5.1) CHLORIDE 101 mmol/L (98-107) CARBON DIOXIDE 44 *H mmol/L (21-32) CALCIUM 8.0 L mg/dL (8.5-10.1) TOTAL PROTEIN 6.4 g/dL (6.4-8.2) ALBUMIN 3.2 L g/dL (3.3-5.0) BILIRUBIN, TOTAL 1.1 H mg/dL (0.0-1.0) ALKALINE PHOSPHATASE 70 U/L (46-116) AST (SGOT) 16 U/L (15-37) ALT (SGPT) 37 U/L (12-78) LIPASE 139 U/L (73-393) AMYLASE 60 U/L (25-115) CPK 37 U/L (24-260) TROPONIN I <0.05 ng/mL (0.00-1.5) TROPONIN REFERENCE RANGE:<0.1 NEGATIVE0.1-1.5 INDETERMINANT>1.5 POSITIVE ABG: (ANDREIA: 12/27/2016 17:10) ( MsgRcvd 12/27/2016 17:26) Final results Test Result Flag Units (Reference) FIO2 60 % (20-101) ABG MODE OF DELIVERY VENT MODIFIED JIM TEST POSITIVE? YES ABG VENT MODE SIMV ABG TIDAL VOLUME 525 cc ABG PATIENT RESP RATE 16 /MIN ABG RESP RATE SETTINGS 16 /MIN ARTERIAL BLOOD GAS PEEP 5 cmH2O ABG PRESSURE SUPPORT 10 cmH2O ARTERIAL BLOOD GAS SITE LR ARTERIAL BLOOD GAS pH 7.38 (7.35-7.45) ABG PCO2 78.3 *H mmHg (35-45) ABG PO2 79.4 mmHg (60.0-80.0) ABG BASE EXCESS 18.7 *H mmol/L (-6.0--6.0) ABG HCO3 45.8 *H mmol/L (20.0-26.0) ABG TCO2 48.2 *H mmol/L (24.0-30.0) ABG OyGgX0n 262.0 H mmHg (7.0-14.0) *NOTE: Normal rangeis based on aFIO2 of 21% ABG SAT O2 97.5 % (95.1-100.0) ABG TOTAL HEMOGLOBIN 10.2 L g/dL (14.0-18.0) ABG O2 HEMOGLOBIN 95.5 % (95.0-100.0) ABG CARBOXYHEMOGLOBIN 2.0 H % (0.5-1.5) ABG METHEMOGLOBIN 0.1 L % (0.4-1.5) ABG RHEMOGLOBIN 2.4 % ABG: (ANDREIA: 12/27/2016 16:00) ( MsgRcvd 12/27/2016 16:11) Final results Test Result Flag Units (Reference) FIO2 40 % (20-101) ABG MODE OF DELIVERY NC MODIFIED JIM TEST POSITIVE? YES LITERS PER MIN. 5 L/MIN (0-20) ABG VENT MODE CPAP ABG PATIENT RESP RATE 20 /MIN ARTERIAL BLOOD GAS PEEP 7.5 cmH2O ARTERIAL BLOOD GAS SITE LR ARTERIAL BLOOD GAS pH 7.25 L (7.35-7.45) ABG PCO2 114.0 *H mmHg (35-45) ABG PO2 60.6 mmHg (60.0-80.0) ABG BASE EXCESS 19.7 *H mmol/L (-6.0--6.0) ABG HCO3 49.7 *H mmol/L (20.0-26.0) ABG TCO2 53.2 *H mmol/L (24.0-30.0) ABG [id number] 97.3 H mmHg (7.0-14.0) *NOTE: Normal rangeis based on aFIO2 of 21% ABG SAT O2 89.6 L % (95.1-100.0) ABG TOTAL HEMOGLOBIN 12.3 L g/dL (14.0-18.0) ABG O2 HEMOGLOBIN 87.7 L % (95.0-100.0) ABG CARBOXYHEMOGLOBIN 2.0 H % (0.5-1.5) ABG METHEMOGLOBIN 0.1 L % (0.4-1.5) ABG RHEMOGLOBIN 10.2 % . PROGRESS AND PROCEDURES Intubation: Time-out completed immediately before the procedure. ED physician and anesthesiologist at bedside. Intubated with 8.0 cuffed endotracheal tube. Head placed in neutral position. Preoxygenated. Hyperventilated. Suction was available. Intubated via orotracheal route. Premedicated with midazolam. Administered induction agent- midazolam and neuromuscular blocking agent- succinylcholine. No complications. Placement confirmed by direct visualization, equal breath sounds and rise and fall of chest wall, chest x-ray and rising O2 saturations. Placement confirmed by end tidal CO2 monitor and ET tube CO2 detection device. Tube secured with device. Suctioning performed. Connected to ventilator. Given propofol post-intubation and vecuronium post-intubation. A chest x-ray was obtained: showing good tube position. Tube marked at lip (24 cm). Technique: direct visualization and video assisted. Procedure successful; one attempt. Course of Care: We do not have ICU beds at [facility] today. Patient is stable. Critical care performed. Time includes: direct patient care, patient reassessment, coordination of patient care, interpretation of data (laboratory data, pulse oximetry, arterial blood gases, chest xrays and prior electrocardiograms), review of patient's medical records, family consultation regarding treatment decisions and documentation of patient care. Procedures excluded from critical care time: intubation and electrocardiography. Discussed case with hospitalist, (Doctors Jana and Lizzette at [facility] Reviewed test results and need for additional work-up. Agreed upon treatment plan and need for patient follow-up. Health care provider will see patient in hospital. Patient/family counseled. Old medical records reviewed. Disposition: Transferred. CLINICAL IMPRESSION Dyspnea. Congestive heart failure. Respiratory failure with hypoxemia and hypercapnia. COPD. Hypoxia. (Electronically signed by Sergio Bernal MD 12/27/2016 20:31)
--- NOTE | 2016-12-27 17:48 | ED CLINICAL REPORT ---
Clinical Report - Physicians/Mid Levels [facility] [address] [place] [address] 12/27/2016 15:54 Patient: STIVEN JUAN Time Seen: 15:59. Arrived- By ambulance. Historian- EMS personnel (The patient's grandson who has power of pharmacist aide and provided some history). History limited by patient's respiratory distress. Physical Exam limited by patient's respiratory distress. HISTORY OF PRESENT ILLNESS Chief Complaint: DYSPNEA. This started today and is still present. It was abrupt in onset. The dyspnea is severe. The patient has had dyspnea on exertion. Similar symptoms previously: REVIEW OF SYSTEMS Unobtainable. All systems otherwise negative, except as recorded above. PAST HISTORY Problems: Changed Mental Status. Head Injury. Abrasion(s). Fall. Abnormal Test. DVT - Deep Venous Thrombosis. Hypoxia. Respiratory Failure. Acidosis. Contusion. Lung Disease. Pneumonia. Congestive Heart Failure. COPD - Chronic Obstructive Pulmonary Disease. Hypertension. Additional Surgeries: Knee Surgery. Neck Surgery. Medications: Tylenol Oral (Tablet 325 mg) 1 tablet, PRN. 1/2 Normal Saline 75mg, per hour. Xarelto Oral (Tablet 15 mg) 1 tablet, BID. PredniSONE Oral (Tablet 20 mg) 1 tablet, 2x a day. Protonix Oral (Tablet Delayed Release 40 mg) 1 tablet, daily. Nitroglycerin Transdermal (Ointment 2 %) 1 inch, 4x a day. Nicotine Transdermal 7 mg/24hr. Iron Oral. CefTRIAXone Sodium Intravenous (Solution Reconstituted 2 gm) 50 mL. Advair Diskus Inhalation. Calcium. OxyCODONE HCl Oral. Polyethylene Glycol External. Potassium Chloride Oral. Tylenol 8 Hour Oral. ZyPREXA Oral. Lasix Oral (Tablet 20 mg) 1 tablet, daily. Lisinopril Oral 25mg, daily. Metoprolol Tartrate Oral 25 mg, BID. Allergies: No Known Drug Allergy. SOCIAL HISTORY Current every day smoker (cigarette). FAMILY HISTORY Unable to obtain family medical history due to patient's unresponsiveness and distress. ADDITIONAL NOTES The nursing notes have been reviewed. PHYSICAL EXAM Vital Signs: Have been reviewed. Appearance: Lethargic. Eyes: Pupils equal, round and reactive to light. ENT: Pharynx normal. Neck: Normal inspection. No jugular venous distention. CVS: Tachycardia. Respiratory: Respiratory distress. Fatigue. Retractions. Accessory muscle use. Prolonged expirations. Decreased air movement. Abdomen: Soft and nontender. No organomegaly. Back: Normal inspection. Skin: Skin warm and dry. Extremities: Extremities exhibit normal ROM. No calf tenderness. No lower extremity edema. LABS, X-RAYS, AND EKG EKG: Rate: 106. Non-specific ST segment / T wave abnormalities. pulmonary disease pattern. EKG unchanged when compared with prior EKG. (23 Dec 2016). Chest X-ray: Vascular congestion present. Cardiomegaly. Medium left pleural effusion present. (ET tube in good position). The X-rays were independently viewed by me. CT Head: (PROCEDURE: CT HEAD WITHOUT CONTRAST INDICATION: MENTAL STATUS CHANGE TECHNIQUE: Axial CT images were acquired through the head. Coronal and sagittal reformations were created. COMPARISON: 12/23/2016 FINDINGS: Mild cerebral cortical atrophy. Mild to moderate hypodensity in the periventricular and subcortical white matter. No focal cortical defects. No intracranial hemorrhage or extraaxial fluid collections. Ventricles are normal in size, shape and position. There is no mass, mass effect or midline shift. The tieno-white matter differentiation is normal. There is no edema. Moderate calcific atherosclerosis of the intracranial internal carotid arteries. The calvarium is intact. The paranasal sinuses and mastoid air cells are normally aerated. The extracranial soft tissues and orbits are normal. There is hardware in the C1 and C2 cervical spine. Endotracheal tube is in place. IMPRESSION: 1. No CT evidence of acute intracranial process. 2. Stable age related involutional and white matter changes.). The study was interpreted by the radiologist and contemporaneously by me. Laboratory Tests: UA-Culture if indicated: (ANDREIA: 12/27/2016 16:30) ( MsgRcvd 12/27/2016 17:24) Final results Test Result Flag Units (Reference) URINE COLOR YELLOW URINE APPEARANCE CLEAR URINE GLUCOSE NEGATIVE (NEGATIVE) URINE BILIRUBIN NEGATIVE (NEGATIVE) URINE KETONE NEGATIVE (NEGATIVE) URINE SPECIFIC GRAVITY 1.025 (1.010-1.030) URINE PH 5.5 (5.0-8.0) URINE PROTEIN TRACE (NEGATIVE) URINE UROBILINOGEN 0.2 EU/dL (0.2-1.0) URINE NITRITE NEGATIVE (NEGATIVE) URINE BLOOD 3+ (NEGATIVE) URINE LEUK ESTERASE NEGATIVE (NEGATIVE) URINE RBC 10-25 rbc/hpf (0-1) URINE WBC 1-3 wbc/hpf (0-1) URINE EPITHELIAL CELLS 0-1 EPI/hpf (0-5) URINE BACTERIA NONE SEEN (NONE SEEN) URINE COMMENT CULT NOT INDICATED 2+ HYANLINE CASTSURINE CULTURES ARE SET-UP BASED ON THE FOLLOWING CRITERIA:POSITIVE NITRITEPOSITIVE LEUKOCYTE ESTERASEGREATER THAN 10 WHITE BLOOD CELLSMODERATE (2+) OR GREATER BACTERIA CBC w Diff: (ANDREIA: 12/27/2016 16:17) ( MsgRcvd 12/27/2016 16:33) Final results Test Result Flag Units (Reference) WHITE BLOOD COUNT 10.5 K/uL (4.5-11.5) RED BLOOD COUNT 4.51 M/uL (4.50-5.90) HEMOGLOBIN 12.3 L gm/dL (13.5-17.5) HEMATOCRIT 39.1 L % (41.0-53.0) MEAN CELL VOLUME 87 fL (80-100) MEAN CORPUSCULAR HGB 27 pg (26-34) MEAN CORPUSCULAR HGB CONC 32 g/dL (31-37) RED CELL DISTRIBUTION WIDTH 17.3 H % (11.6-14.8) PLATELET COUNT 221 K/uL (150-400) NEUTROPHIL % 88.3 H % (50-75) LYMPH % 5.5 L % (25-40) MONO % 6.2 % (3-14) EOSINOPHIL % 0 % (0-4) BASOPHIL % 0 % (0-2) PT with INR: (ANDREIA: 12/27/2016 16:17) ( MsgRcvd 12/27/2016 16:41) Final results Test Result Flag Units (Reference) INR 1.7 H (0.8-1.2) Low Intensity Therapy: INR 1.5-2.0 PT range 18.5-23.1Mod.Intensity Therapy: INR 2.0-3.0 PT range 23.1-31.5High Intensity Therapy: INR 2.5-3.5 PT range 27.4-35.5High Intensity Therapy 2: INR 3.0-4.0 PT range 31.5-39.3 APTT 30 SECONDS (24-34) Lactate, Serum: (ANDREIA: 12/27/2016 16:14) ( [facility] 12/27/2016 17:57) Final results Test Result Flag Units (Reference) LACTIC ACID 1.3 mmol/L (0.4-2.0) BNP: (ANDREIA: 12/27/2016 16:17) ( [facility] 12/27/2016 17:06) Final results Test Result Flag Units (Reference) B-TYPE NATRIURETIC PEPTIDE 532 H pg/ml (5-100) CMP: (ANDREIA: 12/27/2016 16:17) ( PagRcvd 12/27/2016 16:57) Final results Test Result Flag Units (Reference) GLUCOSE 165 H mg/dL (70-110) BUN 13 mg/dL (7-18) CREATININE 0.7 mg/dL (0.6-1.3) Estimated GFR >60 mL/min Estimated GFR- >60 mL/min Note: Persistent reduction over 3 months in eGFR<60 mL/min/1.73 m2 defines CKD. Patients with eGFR values>=60 mL/min/1.73 m2 may also have CKD if evidence ofpersistent proteinuria. Additional information may be foundat [email or web address].org. SODIUM 145 mmol/L (136-145) POTASSIUM 4.8 mmol/L (3.5-5.1) CHLORIDE 101 mmol/L (98-107) CARBON DIOXIDE 44 *H mmol/L (21-32) CALCIUM 8.0 L mg/dL (8.5-10.1) TOTAL PROTEIN 6.4 g/dL (6.4-8.2) ALBUMIN 3.2 L g/dL (3.3-5.0) BILIRUBIN, TOTAL 1.1 H mg/dL (0.0-1.0) ALKALINE PHOSPHATASE 70 U/L (46-116) AST (SGOT) 16 U/L (15-37) ALT (SGPT) 37 U/L (12-78) LIPASE 139 U/L (73-393) AMYLASE 60 U/L (25-115) CPK 37 U/L (24-260) TROPONIN I <0.05 ng/mL (0.00-1.5) TROPONIN REFERENCE RANGE:<0.1 NEGATIVE0.1-1.5 INDETERMINANT>1.5 POSITIVE ABG: (ANDREIA: 12/27/2016 17:10) ( MsgRcvd 12/27/2016 17:26) Final results Test Result Flag Units (Reference) FIO2 60 % (20-101) ABG MODE OF DELIVERY VENT MODIFIED JIM TEST POSITIVE? YES ABG VENT MODE SIMV ABG TIDAL VOLUME 525 cc ABG PATIENT RESP RATE 16 /MIN ABG RESP RATE SETTINGS 16 /MIN ARTERIAL BLOOD GAS PEEP 5 cmH2O ABG PRESSURE SUPPORT 10 cmH2O ARTERIAL BLOOD GAS SITE LR ARTERIAL BLOOD GAS pH 7.38 (7.35-7.45) ABG PCO2 78.3 *H mmHg (35-45) ABG PO2 79.4 mmHg (60.0-80.0) ABG BASE EXCESS 18.7 *H mmol/L (-6.0--6.0) ABG HCO3 45.8 *H mmol/L (20.0-26.0) ABG TCO2 48.2 *H mmol/L (24.0-30.0) ABG PiYcE0z 262.0 H mmHg (7.0-14.0) *NOTE: Normal rangeis based on aFIO2 of 21% ABG SAT O2 97.5 % (95.1-100.0) ABG TOTAL HEMOGLOBIN 10.2 L g/dL (14.0-18.0) ABG O2 HEMOGLOBIN 95.5 % (95.0-100.0) ABG CARBOXYHEMOGLOBIN 2.0 H % (0.5-1.5) ABG METHEMOGLOBIN 0.1 L % (0.4-1.5) ABG RHEMOGLOBIN 2.4 % ABG: (ANDREIA: 12/27/2016 16:00) ( MsgRcvd 12/27/2016 16:11) Final results Test Result Flag Units (Reference) FIO2 40 % (20-101) ABG MODE OF DELIVERY NC MODIFIED JIM TEST POSITIVE? YES LITERS PER MIN. 5 L/MIN (0-20) ABG VENT MODE CPAP ABG PATIENT RESP RATE 20 /MIN ARTERIAL BLOOD GAS PEEP 7.5 cmH2O ARTERIAL BLOOD GAS SITE LR ARTERIAL BLOOD GAS pH 7.25 L (7.35-7.45) ABG PCO2 114.0 *H mmHg (35-45) ABG PO2 60.6 mmHg (60.0-80.0) ABG BASE EXCESS 19.7 *H mmol/L (-6.0--6.0) ABG HCO3 49.7 *H mmol/L (20.0-26.0) ABG TCO2 53.2 *H mmol/L (24.0-30.0) ABG TaLqN8x 97.3 H mmHg (7.0-14.0) *NOTE: Normal rangeis based on aFIO2 of 21% ABG SAT O2 89.6 L % (95.1-100.0) ABG TOTAL HEMOGLOBIN 12.3 L g/dL (14.0-18.0) ABG O2 HEMOGLOBIN 87.7 L % (95.0-100.0) ABG CARBOXYHEMOGLOBIN 2.0 H % (0.5-1.5) ABG METHEMOGLOBIN 0.1 L % (0.4-1.5) ABG RHEMOGLOBIN 10.2 % . PROGRESS AND PROCEDURES Intubation: Time-out completed immediately before the procedure. ED physician and anesthesiologist at bedside. Intubated with 8.0 cuffed endotracheal tube. Head placed in neutral position. Preoxygenated. Hyperventilated. Suction was available. Intubated via orotracheal route. Premedicated with midazolam. Administered induction agent- midazolam and neuromuscular blocking agent- succinylcholine. No complications. Placement confirmed by direct visualization, equal breath sounds and rise and fall of chest wall, chest x-ray and rising O2 saturations. Placement confirmed by end tidal CO2 monitor and ET tube CO2 detection device. Tube secured with device. Suctioning performed. Connected to ventilator. Given propofol post-intubation and vecuronium post-intubation. A chest x-ray was obtained: showing good tube position. Tube marked at lip (24 cm). Technique: direct visualization and video assisted. Procedure successful; one attempt. Course of Care: We do not have ICU beds at [facility] today. Patient is stable. Critical care performed. Time includes: direct patient care, patient reassessment, coordination of patient care, interpretation of data (laboratory data, pulse oximetry, arterial blood gases, chest xrays and prior electrocardiograms), review of patient's medical records, family consultation regarding treatment decisions and documentation of patient care. Procedures excluded from critical care time: intubation and electrocardiography. Discussed case with hospitalist, (Doctors Jana and Lizzette at [facility]). Reviewed test results and need for additional work-up. Agreed upon treatment plan and need for patient follow-up. Health care provider will see patient in hospital. Patient/family counseled. Old medical records reviewed. Disposition: Transferred. CLINICAL IMPRESSION Dyspnea. Congestive heart failure. Respiratory failure with hypoxemia and hypercapnia. COPD. Hypoxia. (Electronically signed by Sergio Bernal MD 12/27/2016 20:31)
--- NOTE | 2016-12-27 17:48 | ED ORDER SUMMARY ---
..... Patient: STIVEN JUAN OrderSheet [facility] VisitID: [id number] [place] [address] 71y, M Registration Date/Time: 12/27/2016 ORDER SHEET Weight: 80.9 kg Allergies: No Known Drug Allergy GENERAL ORDERS: Chest 1V Urgent (15:59 12/27/2016 Karolina OYUNG) (Ack 16:18 Damari) (16:37 JSimbeck R.N.) Batch Freezer Operator (Continuous) (15:59 12/27/2016 Karolina YOUNG) (16:15 RMarsden R.N.) CBC w Diff Urgent (16:00 12/27/2016 Karolina YOUNG) (16:15 RMarsden R.N.) CMP Urgent (16:00 12/27/2016 Karolina YOUNG) (16:15 RMarsden R.N.) UA-Culture if indicated Urgent (16:00 12/27/2016 Karolina YOUNG) (Ack 16:18 Damari) (16:36 RMarsden R.N.) PT with INR Urgent (16:00 12/27/2016 Karolina YOUNG) (16:15 RMarsden R.N.) PTT Urgent (16:00 12/27/2016 Karolina YOUNG) (16:15 RMarsden R.N.) Amylase Urgent (16:00 12/27/2016 Karolina YOUNG) (16:15 RMarsden R.N.) Lipase Urgent (16:00 12/27/2016 Karolina YOUNG) (16:15 RMarsden R.N.) Troponin-I Urgent (16:00 12/27/2016 Karolina YOUNG) (16:15 RMrosalindaden R.N.) CPK Urgent (16:00 12/27/2016 Karolina YOUNG) (16:15 RMarsden R.N.) BNP Urgent (16:00 12/27/2016 Karolina YOUNG) (16:15 RMarsden R.N.) ABG (G) Urgent (16:00 12/27/2016 Karolina YOUNG) (16:15 RMarsden R.N.) Pulse oximeter (16:00 12/27/2016 Karolina YOUNG) (16:15 RMsandeep R.N.) EKG - ER Stat (16:00 12/27/2016 Karolina YOUNG) (16:14 Cristel) Oxygen (2 L/min) (NC) (16:00 12/27/2016 Karolina YOUNG) (16:15 RMrosalindaden R.N.) RT Evaluation Stat (16:00 12/27/2016 Karolina YOUNG) (16:15 Mihir R.N.) Lactate, Serum Urgent (16:32 12/27/2016 Karolina YOUNG) (16:36 RMros[address]aden R[address]N.) CT Head wo Cont Urgent (17:15 12/27/2016 Karolina YOUNG) (Ack 17:26 Cristel) (18:13 JSimbeck R.N.) ABG (G) Urgent (18:01 12/27/2016 Karolina YOUNG) (Ack 18:12 Damari) (18:13 JSimbeck R.N.) NG Tube (18:55 12/27/2016 LSullivan R.N. per protocol) (18:55 LSullivan R.N.) MEDICATION ORDERS: Precedex IV : Bolus none, then 0.2 mcg/kg/hr (NOW); Urgent (titrate to sedation: max dose 0.7 mcg/kg/hr) (18:08 12/27/2016 Karolina YOUNG) (19:00 JSlorenzaeck R.N.) IV FLUIDS: IV Saline Lock (16:00 12/27/2016 Karolina YOUNG) (16:37 JSimbeck R.N.) Propofol Drip IV : initial bolus 100 mg , then 0.1 mg/kg/min (NOW); Urgent (16:28 12/27/2016 Karolina YOUNG) (Ack 16:37 JSimbeck R.N.) (17:24 RMsandeep R.N.) Zofran IV 4 mg (NOW) (16:39 12/27/2016 Michael R.N. verbal order read back to Karolina YOUNG) (16:40 Michael R.N.) Dilaudid IV 0.5 mg (NOW) (16:41 12/27/2016 Michael R.N. verbal order read back to Karolina YOUNG) (16:41 Michael R.N.) Versed IV 2.5mg (NOW) (16:42 12/27/2016 Antoineeck R.N. verbal order read back to Karolina YOUNG) (16:44 Michael R.N.) Vecuronium Drip IV : initial bolus none, then 1 mcg/kg/min (HIGH ALERT MEDICATION, NOW, TITRATE) (17:18 12/27/2016 Karolina YOUNG) (Cancelled: Other18:13 Antoineeck R.N.) Succinylcholine IV 70mg (NOW) (17:24 12/27/2016 Antoineeck R.N. verbal order read back to Karolina YOUNG) (17:26 Michael R.N.) Succinylcholine IV 40mg (NOW) (17:26 12/27/2016 Michael R.N. verbal order read back to Karolina YOUNG) (17:28 Michael R.N.) IV NS with Normal Saline 1 Liter: initial bolus 1000 mL (1000 mL/hr), then none - for X1 (NOW); Urgent (17:57 12/27/2016 Michael R.N. verbal order read back to Karolina YOUNG) (18:01 Michael R.N.) Solu-MEDROL IV 125 mg (NOW) (18:03 12/27/2016 Mihir R.N. verbal order read back to Karolina YOUNG) (18:17 Mihir R.N.) Vecuronium Drip IV : initial bolus none, then 1 mcg/kg/min (NOW); Urgent (18:51 12/27/2016 Michael R.N. verbal order read back to Karolina YOUNG) (19:22 Matthew R.N.) ORDER SHEET NOTES: [Electronically signed by Sergio Bernal MD (20:31 12/27/2016)] [Electronically signed by Megan Garcia R.N. (20:32 12/27/2016)] [Electronically locked/signed by Megan Garcia R.N. (20:32 12/27/2016)]
--- NOTE | 2016-12-27 18:36 | DIAGNOSTIC IMAGING REPORT ---
PROCEDURE: CT HEAD WITHOUT CONTRAST INDICATION: MENTAL STATUS CHANGE TECHNIQUE: Axial CT images were acquired through the head. Coronal and sagittal reformations were created. COMPARISON: 12/23/2016 FINDINGS: Mild cerebral cortical atrophy. Mild to moderate hypodensity in the periventricular and subcortical white matter. No focal cortical defects. No intracranial hemorrhage or extraaxial fluid collections. Ventricles are normal in size, shape and position. There is no mass, mass effect or midline shift. The tineo-white matter differentiation is normal. There is no edema. Moderate calcific atherosclerosis of the intracranial internal carotid arteries. The calvarium is intact. The paranasal sinuses and mastoid air cells are normally aerated. The extracranial soft tissues and orbits are normal. There is hardware in the C1 and C2 cervical spine. Endotracheal tube is in place. IMPRESSION: 1. No CT evidence of acute intracranial process. 2. Stable age related involutional and white matter changes. 3. Findings discussed with Dr. Bernal at 18:[address] scans at this facility use dose modulation, iterative reconstruction, and/or weight-based dosing when appropriate to reduce radiation dose to as low as reasonably achievable.
--- NOTE | 2016-12-27 20:32 | ED MAR SUMMARY ---
..... Medication Administration Record [facility] [address] [place] [address] Patient: STIVEN JUAN Visit ID: [id number] 71y, M Weight: 80.9 kg Height/Length: 68 in BMI: 27.1 ALLERGIES: No Known Drug Allergy Start 15:55 12/27/2016 August Clark R.N., Stop 19:29 12/27/2016 Juanpablo Bah Medication Administered: IV NS (SALINE), Dose: IV Fluids, Bolus: 1000 mL over 30 minute(s), Dispensed: 1000 mL bag, Site: #1 left AC. Medication Ordered: IV NS with Normal Saline 1 Liter: initial bolus 1000 mL (1000 mL/hr), then none - for X1 (NOW); Urgent. Start 16:15 12/27/2016 August Clark R.N., Continued Upon Disposition 20:21 12/27/2016 Juanpablo Bah Medication Administered: IV NS (SALINE), Dose: IV Fluids, Bolus: 1000 mL over 1 hour(s), Dispensed: 1000 mL bag, Site: #2 right hand. Medication Ordered: IV NS with Normal Saline 1 Liter: initial bolus 1000 mL (1000 mL/hr), then none - for X1 (NOW); Urgent. Given 16:17 12/27/2016 August Clark R.N. Medication Administered: ZOFRAN [IVP] (ONDANSETRON HCL), Dose: 4 mg IVP over 1 minute(s), Site: #1 left AC. Medication Ordered: Zofran IV 4 mg (NOW). Given 16:18 12/27/2016 August Clark R.N. Medication Administered: DILAUDID [IVP] (HYDROMORPHONE HCL PF), Dose: 0.5 mg IVP over 1 minute(s), Site: #1 left AC. Medication Ordered: Dilaudid IV 0.5 mg (NOW). Given 16:20 12/27/2016 August Clark R.N. Medication Administered: VERSED [IVP] (MIDAZOLAM HCL), Dose: 2.5 mg IVP over 1 minute(s), Site: #1 left AC. Medication Ordered: Versed IV 2.5mg (NOW). Given 16:21 12/27/2016 August Clark R.N. Medication Administered: SUCCINYLCHOLINE [IVP], Dose: 70 mg IVP over 1 minute(s), Site: #1 left AC. Medication Ordered: Succinylcholine IV 70mg (NOW). Given 16:22 12/27/2016 August Clark R.N. Medication Administered: SUCCINYLCHOLINE [IVP], Dose: 40 mg IVP over 1 minute(s), Site: #1 left AC. Medication Ordered: Succinylcholine IV 40mg (NOW). Start 16:30 12/27/2016 Gloria Carlson R.N. Medication Administered: PROPOFOL [IV DRIP], Dose: 50 mg Drip IV over 2 hour(s), Rate: 50 mcg/kg/min, Bolus: 100 mg over 30 second(s), Dispensed: 100 mL bag, Site: #1 left AC. Medication Ordered: Propofol Drip IV : initial bolus 100 mg , then 0.1 mg/kg/min (NOW); Urgent. Given 18:07 12/27/2016 Gloria Carlson R.N. Medication Administered: SOLU-MEDROL [IVP] (METHYLPREDNISOLONE SODIUM SUCC), Dose: 125 mg IVP over 2 minute(s), Site: #2 right hand. Medication Ordered: Solu-MEDROL IV 125 mg (NOW). Given 18:30 12/27/2016 August Clark R.N. Medication Administered: PRECEDEX [IVP] (DEXMEDETOMIDINE HCL), Dose: 0.2 mcg IVP over 4 hour(s), Site: #1 left AC. Medication Ordered: Precedex IV : Bolus none, then 0.2 mcg/kg/hr (NOW); Urgent (titrate to sedation: max dose 0.7 mcg/kg/hr). Start 19:12/27/2016 Juanpablo Bah, Continued Upon Transfer 20:12/27/2016 Juanpablo aBh Medication Administered: VECURONIUM [IV DRIP], Dose: 40 mg Drip IV over 12 hour(s), Rate: 1 mcg/kg/min, Dispensed: 100 mL bag, Site: #2 right hand. Medication Ordered: Vecuronium Drip IV : initial bolus none, then 1 mcg/kg/min (NOW); Urgent. Start 19:29 12/27/2016 Juanpablo Bah Medication Administered: PROPOFOL [IV DRIP], Dose: 1000 mg Drip IV over 3 hour(s), Rate: 35 mcg/kg/min, Dispensed: 100 mL bag, Site: #1 left AC. Medication Ordered: Propofol Drip IV : initial bolus 100 mg , then 0.1 mg/kg/min (NOW); Urgent. Start 19:38 12/27/2016 Juanpablo Bah, Continued Upon Transfer 20:21 12/27/2016 Juanpablo Bah Medication Administered: PROPOFOL [IV DRIP], Dose: 1000 mg Drip IV over 3.4 hour(s), Rate: 30 mcg/kg/min, Dispensed: 100 mL bag, Site: #1 left AC. Medication Ordered: Propofol Drip IV : initial bolus 100 mg , then 0.1 mg/kg/min (NOW); Urgent.
--- NOTE | 2016-12-27 20:32 | ED DISCHARGE INSTRUCTIONS ---
Patient: STIVEN JUAN General Instructions [facility] VisitID: [id number] [address] [place] [address] 71y, M Registration Date/Time: 12/27/2016 Dyspnea. Congestive heart failure. Respiratory failure with hypoxemia and hypercapnia. COPD. Hypoxia. (Electronically signed by Sergio Bernal MD 12/27/2016 20:31)
--- NOTE | 2016-12-27 20:32 | ED DISCHARGE INSTRUCTIONS ---
Patient: STIVEN JUAN General Instructions [facility] VisitID: [id number] [address] [place] [address] 71y, M Registration Date/Time: 12/27/2016 Dyspnea. Congestive heart failure. Respiratory failure with hypoxemia and hypercapnia. COPD. Hypoxia. (Electronically signed by Sergio Bernal MD 12/27/2016 20:31)
--- NOTE | 2016-12-27 20:32 | ED MAR SUMMARY ---
..... Medication Administration Record [facility] [address] [place] [address] Patient: STIVEN JUAN Visit ID: [id number] 71y, M Weight: 80.9 kg Height/Length: 68 in BMI: 27.1 ALLERGIES: No Known Drug Allergy Start 15:55 12/27/2016 August Clark R.N., Stop 19:29 12/27/2016 Juanpablo Bah Medication Administered: IV NS (SALINE), Dose: IV Fluids, Bolus: 1000 mL over 30 minute(s), Dispensed: 1000 mL bag, Site: #1 left AC. Medication Ordered: IV NS with Normal Saline 1 Liter: initial bolus 1000 mL (1000 mL/hr), then none - for X1 (NOW); Urgent. Start 16:15 12/27/2016 August Clark R.N., Continued Upon Disposition 20:21 12/27/2016 Juanpablo Bah Medication Administered: IV NS (SALINE), Dose: IV Fluids, Bolus: 1000 mL over 1 hour(s), Dispensed: 1000 mL bag, Site: #2 right hand. Medication Ordered: IV NS with Normal Saline 1 Liter: initial bolus 1000 mL (1000 mL/hr), then none - for X1 (NOW); Urgent. Given 16:17 12/27/2016 August Clark R.N. Medication Administered: ZOFRAN [IVP] (ONDANSETRON HCL), Dose: 4 mg IVP over 1 minute(s), Site: #1 left AC. Medication Ordered: Zofran IV 4 mg (NOW). Given 16:18 12/27/2016 August Clark R.N. Medication Administered: DILAUDID [IVP] (HYDROMORPHONE HCL PF), Dose: 0.5 mg IVP over 1 minute(s), Site: #1 left AC. Medication Ordered: Dilaudid IV 0.5 mg (NOW). Given 16:20 12/27/2016 August Clark R.N. Medication Administered: VERSED [IVP] (MIDAZOLAM HCL), Dose: 2.5 mg IVP over 1 minute(s), Site: #1 left AC. Medication Ordered: Versed IV 2.5mg (NOW). Given 16:21 12/27/2016 August Clark R.N. Medication Administered: SUCCINYLCHOLINE [IVP], Dose: 70 mg IVP over 1 minute(s), Site: #1 left AC. Medication Ordered: Succinylcholine IV 70mg (NOW). Given 16:22 12/27/2016 August Clark R.N. Medication Administered: SUCCINYLCHOLINE [IVP], Dose: 40 mg IVP over 1 minute(s), Site: #1 left AC. Medication Ordered: Succinylcholine IV 40mg (NOW). Start 16:30 12/27/2016 Gloria Carlson R.N. Medication Administered: PROPOFOL [IV DRIP], Dose: 50 mg Drip IV over 2 hour(s), Rate: 50 mcg/kg/min, Bolus: 100 mg over 30 second(s), Dispensed: 100 mL bag, Site: #1 left AC. Medication Ordered: Propofol Drip IV : initial bolus 100 mg , then 0.1 mg/kg/min (NOW); Urgent. Given 18:07 12/27/2016 Gloria Carlson R.N. Medication Administered: SOLU-MEDROL [IVP] (METHYLPREDNISOLONE SODIUM SUCC), Dose: 125 mg IVP over 2 minute(s), Site: #2 right hand. Medication Ordered: Solu-MEDROL IV 125 mg (NOW). Given 18:30 12/27/2016 August Clark R.N. Medication Administered: PRECEDEX [IVP] (DEXMEDETOMIDINE HCL), Dose: 0.2 mcg IVP over 4 hour(s), Site: #1 left AC. Medication Ordered: Precedex IV : Bolus none, then 0.2 mcg/kg/hr (NOW); Urgent (titrate to sedation: max dose 0.7 mcg/kg/hr). Start 19:12/27/2016 Juanpablo Bah, Continued Upon Transfer 20:12/27/2016 Juanpablo Bah Medication Administered: VECURONIUM [IV DRIP], Dose: 40 mg Drip IV over 12 hour(s), Rate: 1 mcg/kg/min, Dispensed: 100 mL bag, Site: #2 right hand. Medication Ordered: Vecuronium Drip IV : initial bolus none, then 1 mcg/kg/min (NOW); Urgent. Start 19:29 12/27/2016 Juanpablo Bah Medication Administered: PROPOFOL [IV DRIP], Dose: 1000 mg Drip IV over 3 hour(s), Rate: 35 mcg/kg/min, Dispensed: 100 mL bag, Site: #1 left AC. Medication Ordered: Propofol Drip IV : initial bolus 100 mg , then 0.1 mg/kg/min (NOW); Urgent. Start 19:38 12/27/2016 Juanpablo Bah, Continued Upon Transfer 20:21 12/27/2016 Juanpablo Bah Medication Administered: PROPOFOL [IV DRIP], Dose: 1000 mg Drip IV over 3.4 hour(s), Rate: 30 mcg/kg/min, Dispensed: 100 mL bag, Site: #1 left AC. Medication Ordered: Propofol Drip IV : initial bolus 100 mg , then 0.1 mg/kg/min (NOW); Urgent.
--- NOTE | 2016-12-27 20:33 | ED MED RECONCILIATION SUMMARY ---
Patient: STIVEN JUAN Medication Reconciliation Report [facility] VisitID: [id number] [address] [place] [address] 71y, M Registration Date/Time: 12/27/2016 Weight: 80.9 kg Height/Length: 68 in. BMI: 27.1 ALLERGIES: No Known Drug Allergy The patient's Home Medications are listed below: THE FOLLOWING MEDICATIONS NEED TO BE RECONCILED: 1/2 Normal Saline 75mg, per hour Advair Diskus Inhalation Calcium CefTRIAXone Sodium Intravenous (2 gm) 50 mL Iron Oral Lasix Oral (20 mg) 1 tablet, daily Lisinopril Oral 25mg, daily Metoprolol Tartrate Oral 25 mg, BID Nicotine Transdermal 7 mg/24hr Nitroglycerin Transdermal (2 %) 1 inch, 4x a day OxyCODONE HCl Oral Polyethylene Glycol External Potassium Chloride Oral PredniSONE Oral (20 mg) 1 tablet, 2x a day Protonix Oral (40 mg) 1 tablet, daily Tylenol 8 Hour Oral Tylenol Oral (325 mg) 1 tablet, PRN Xarelto Oral (15 mg) 1 tablet, BID ZyPREXA Oral The source(s) of the original Home Medication information: Not obtained. The following Medications were given to the patient in the Emergency Department: Zofran [IVP] IVP 4 mg, administered: 12/27/2016 4:17:00 PM Dilaudid [IVP] IVP 0.5 mg, administered: 12/27/2016 4:18:00 PM Versed [IVP] IVP 2.5 mg, administered: 12/27/2016 4:20:00 PM Propofol [IV Drip] Drip IV bolus 100 mg over 30 second(s), then 50 mg 50 mcg/kg/min, administered: 12/27/2016 4:30:00 PM Succinylcholine [IVP] IVP 70 mg, administered: 12/27/2016 4:21:00 PM Succinylcholine [IVP] IVP 40 mg, administered: 12/27/2016 4:22:00 PM IV NS IV Fluids bolus 1000 mL over 30 minute(s), administered: 12/27/2016 3:55:00 PM IV NS IV Fluids bolus 1000 mL over 1 hour(s), administered: 12/27/2016 4:15:00 PM SOLU-MEDROL [IVP] IVP 125 mg, administered: 12/27/2016 6:07:00 PM PRECEDEX [IVP] IVP 0.2 mcg, administered: 12/27/2016 6:30:00 PM Vecuronium [IV Drip] Drip IV bolus 0, then 40 mg 1 mcg/kg/min, administered: 12/27/2016 7:22:00 PM Propofol [IV Drip] Drip IV bolus 0, then 1000 mg 35 mcg/kg/min, administered: 12/27/2016 7:29:00 PM Propofol [IV Drip] Drip IV bolus 0, then 1000 mg 30 mcg/kg/min, administered: 12/27/2016 7:38:00 PM The following Medications were prescribed to the patient: None.
--- NOTE | 2016-12-27 20:33 | ED MED RECONCILIATION SUMMARY ---
Patient: STIVEN JUAN Medication Reconciliation Report [facility] VisitID: [id number] [address] [place] [address] 71y, M Registration Date/Time: 12/27/2016 Weight: 80.9 kg Height/Length: 68 in. BMI: 27.1 ALLERGIES: No Known Drug Allergy The patient's Home Medications are listed below: THE FOLLOWING MEDICATIONS NEED TO BE RECONCILED: 1/2 Normal Saline 75mg, per hour Advair Diskus Inhalation Calcium CefTRIAXone Sodium Intravenous (2 gm) 50 mL Iron Oral Lasix Oral (20 mg) 1 tablet, daily Lisinopril Oral 25mg, daily Metoprolol Tartrate Oral 25 mg, BID Nicotine Transdermal 7 mg/24hr Nitroglycerin Transdermal (2 %) 1 inch, 4x a day OxyCODONE HCl Oral Polyethylene Glycol External Potassium Chloride Oral PredniSONE Oral (20 mg) 1 tablet, 2x a day Protonix Oral (40 mg) 1 tablet, daily Tylenol 8 Hour Oral Tylenol Oral (325 mg) 1 tablet, PRN Xarelto Oral (15 mg) 1 tablet, BID ZyPREXA Oral The source(s) of the original Home Medication information: Not obtained. The following Medications were given to the patient in the Emergency Department: Zofran [IVP] IVP 4 mg, administered: 12/27/2016 4:17:00 PM Dilaudid [IVP] IVP 0.5 mg, administered: 12/27/2016 4:18:00 PM Versed [IVP] IVP 2.5 mg, administered: 12/27/2016 4:20:00 PM Propofol [IV Drip] Drip IV bolus 100 mg over 30 second(s), then 50 mg 50 mcg/kg/min, administered: 12/27/2016 4:30:00 PM Succinylcholine [IVP] IVP 70 mg, administered: 12/27/2016 4:21:00 PM Succinylcholine [IVP] IVP 40 mg, administered: 12/27/2016 4:22:00 PM IV NS IV Fluids bolus 1000 mL over 30 minute(s), administered: 12/27/2016 3:55:00 PM IV NS IV Fluids bolus 1000 mL over 1 hour(s), administered: 12/27/2016 4:15:00 PM SOLU-MEDROL [IVP] IVP 125 mg, administered: 12/27/2016 6:07:00 PM PRECEDEX [IVP] IVP 0.2 mcg, administered: 12/27/2016 6:30:00 PM Vecuronium [IV Drip] Drip IV bolus 0, then 40 mg 1 mcg/kg/min, administered: 12/27/2016 7:22:00 PM Propofol [IV Drip] Drip IV bolus 0, then 1000 mg 35 mcg/kg/min, administered: 12/27/2016 7:29:00 PM Propofol [IV Drip] Drip IV bolus 0, then 1000 mg 30 mcg/kg/min, administered: 12/27/2016 7:38:00 PM The following Medications were prescribed to the patient: None.
== END 2016-12-27 20:30 | disposition short-term general hospital (02) ==
LOC: ED SRH 15:53
DX: I11.0 Hypertensive heart disease with heart failure (principal); I50.9 Heart failure, unspecified; J96.91 Respiratory failure, unspecified with hypoxia; J96.92 Respiratory failure, unspecified with hypercapnia; J44.9 Chronic obstructive pulmonary disease, unspecified; Z79.891 Long term (current) use of opiate analgesic; Z79.899 Other long term (current) drug therapy; F17.219 Nicotine dependence, cigarettes, with unspecified nicotine-induced disorders
CPT/HCPCS: 90004; 90100; 90616; 91320; 92031; 92235; 92530; 92610; 94001; 94060; 95059